=== PATIENT | female | born 1975 | race Caucasian/White ===

== ENCOUNTER 2017-06-18 23:01 | Inpatient (IN) | payer MEDICAID ==
--- NOTE | 2017-06-18 23:06 | EDM.PDOC ---
ED HPI GENERAL MEDICAL PROBLEM - General Chief Complaint: General Stated Complaint: FEVER/SICK Time Seen by Provider: 06/18/17 23:05 Source of Information: Reports: Patient - History of Present Illness INITIAL COMMENTS - FREE TEXT/NARRATIVE: HISTORY AND PHYSICAL: History of present illness: [Patient presents with nausea vomiting right upper quadrant pain since Thursday unable to keep food or water down, on arrival it is noted she is hypotensive 90s over 60s, she has been stable in this blood pressure range since arrival No fever vomiting chills sweats here in the emergency room no chest pain shortness breath headache dizziness palpitation no urine symptoms ] Review of systems: As per history of present illness and below otherwise all systems reviewed and negative. Past medical history: As per history of present illness and as reviewed below otherwise noncontributory. Surgical history: As per history of present illness and as reviewed below otherwise noncontributory. Social history: No reported history of drug or alcohol abuse. Family history: As per history of present illness and as reviewed below otherwise noncontributory. Physical exam: HEENT: Atraumatic, normocephalic, pupils reactive, negative for conjunctival pallor or scleral icterus, mucous membranes moist, throat clear, neck supple, nontender, trachea midline. Lungs: Clear to auscultation, breath sounds equal bilaterally, chest nontender. Heart: S1S2, regular, negative for clicks, rubs, or JVD. Abdomen: Soft, nondistended, tender in the right upper quadrant otherwise no guarding or rebound tenderness. Negative for masses or hepatosplenomegaly. Negative for costovertebral tenderness. Pelvis: Stable nontender. Genitourinary: Deferred. Rectal: Deferred. Extremities: Atraumatic, negative for cords or calf pain. Neurovascular unremarkable. Neuro: Awake, alert, oriented. Cranial nerves II through XII unremarkable. Cerebellum unremarkable. Motor and sensory unremarkable throughout. Exam nonfocal. Diagnostics: [Influenza/strep] CBC CMP UA amylase lipase hCG Therapeutics: [1 L normal saline bolus followed by 1 50 mL per hour Zofran 8 mg IV Toradol 30 mg IV Cipro 400 mg IV twice a day ] Impression: Dehydration Nausea vomiting by history Right upper quadrant pain/acute cholecystitis Cholelithiasis Insufficiency Definitive disposition and diagnosis as appropriate pending reevaluation and review of above. Right Upper Abdomen Pain Score (Numeric/FACES): 8 - Related Data Allergies Allergy/AdvReac Type Severity Reaction Status Date / Time No Known Allergies Allergy Verified 06/18/17 23:10 Home Meds: Home Meds Estradiol 1 mg PO DAILY 06/18/17 [History] Furosemide 20 mg PO DAILY 06/18/17 [History] LORazepam 0.5 mg PO Q6HR MDD anxiety 06/18/17 [History] Lisinopril/Hydrochlorothiazide [Lisinopril-Hctz 20-25 mg Tab] 1 each PO DAILY [History] buPROPion [Wellbutrin SR] 150 mg PO BID 06/18/17 [History] ED ROS GENERAL - Review of Systems Review Of Systems: ROS reveals no pertinent complaints other than HPI. ED EXAM, GENERAL - Physical Exam Exam: See Below Course - Vital Signs Last Recorded V/S: Last Vital Signs Temp 98.2 F 06/19/17 01:05 Pulse 95 06/19/17 00:52 Resp 18 06/19/17 00:52 BP 99/52 L 06/19/17 00:52 Pulse Ox 97 06/19/17 00:52 - Orders/Labs/Meds Orders: Active Orders 24 hr Category Date Time Status Abdomen Ltd [US] Stat Exams 06/18/17 23:22 Taken CULTURE BLOOD [BC] Stat Lab 06/18/17 23:43 Received CULTURE BLOOD [BC] Stat Lab 06/18/17 23:46 Received CULTURE STREP A CONFIRMATION [RM] Stat Lab 06/18/17 23:30 Results STREP SCRN A RAPID W CULT CONF [RM] Stat Lab 06/18/17 23:30 Results UA W/MICROSCOPIC [URIN] Stat Lab 06/18/17 23:19 Uncollected Ciprofloxacin in D5W [Cipro in D5W 400 MG/200 ML] 400 Med 06/19/17 01:45 Ordered mg Premix Bag 1 bag IV Q12H Sodium Chloride 0.9% [Normal Saline] 1,000 ml Med 06/19/17 01:15 Active IV STAT Blood Culture x2 Reflex Set [OM.PC] Stat Oth 06/18/17 23:23 Ordered Medication Orders Sodium Chloride (Normal Saline) 1,000 mls @ 150 mls/hr IV STAT CHEVY Last Admin: 06/19/17 01:15 Dose: 150 mls/hr Labs: Laboratory Tests 06/18/17 06/18/17 06/18/17 Range/Units 23:30 23:30 23:30 WBC 9.18 (4.0-11.0) K/uL RBC 4.88 (4.30-5.90) M/uL Hgb 15.6 (12.0-16.0) g/dL Hct 45.5 (36.0-46.0) % MCV 93.2 (80.0-98.0) fL MCH 32.0 (27.0-32.0) pg MCHC 34.3 (31.0-37.0) g/dL RDW Std Deviation 48.6 (28.0-62.0) fl RDW Coeff of Ana 14 (11.0-15.0) % Plt Count 202 (150-400) K/uL MPV 12.50 H (7.40-12.00) fL Neut % (Auto) 65.8 (48.0-80.0) % Lymph % (Auto) 21.0 (16.0-40.0) % Forrest % (Auto) 11.0 (0.0-15.0) % Eos % (Auto) 2.0 (0.0-7.0) % Baso % (Auto) 0.2 (0.0-1.5) % Neut # (Auto) 6.0 H (1.4-5.7) K/uL Lymph # (Auto) 1.9 (0.6-2.4) K/uL Forrest # (Auto) 1.0 H (0.0-0.8) K/uL Eos # (Auto) 0.2 (0.0-0.7) K/uL Baso # (Auto) 0.0 (0.0-0.1) K/uL Nucleated RBC % 0.0 /100WBC Nucleated RBCs # 0 K/uL Lactate 1.1 (0.20-2.00) mmol/L Sodium 135 L (136-146) mmol/L Potassium 3.3 L (3.5-5.1) mmol/L Chloride 99 (98-110) mmol/L Carbon Dioxide 20 L (21-31) mmol/L BUN 35 H (6.0-23.0) mg/dL Creatinine 3.9 H (0.6-1.5) mg/dL Est Cr Clr Drug Dosing 21.91 mL/min Estimated GFR (MDRD) 12.7 ml/min Glucose 101 (60-110) mg/dL Calcium 9.2 (8.8-10.8) mg/dL Total Bilirubin 0.4 (0.1-1.5) mg/dL AST 36 (5-40) IU/L ALT 92 H (8-54) IU/L Alkaline Phosphatase 82 (40-150) Total Protein 7.6 (6.0-8.0) g/dL Albumin 4.4 (3.5-5.0) g/dL Globulin 3.2 (2.0-3.5) g/dL Albumin/Globulin Ratio 1.4 (1.3-2.8) Amylase 66 (10-90) U/L Lipase 24 (7-80) U/L Meds: Medications Generic Name Dose Route Start Last Admin Trade Name Freq PRN Reason Stop Dose Admin Sodium Chloride 1,000 mls @ 150 mls/hr 06/19/17 01:15 06/19/17 01:15 Normal Saline IV 150 mls/hr STAT CHEVY Administration Discontinued Medications Generic Name Dose Route Start Last Admin Trade Name Freq PRN Reason Stop Dose Admin Sodium Chloride 1,000 mls @ 999 mls/hr 06/18/17 23:19 06/18/17 23:32 Normal Saline IV 06/19/17 00:19 999 mls/hr STAT ONE Administration Ketorolac Tromethamine 30 mg 06/18/17 23:19 06/18/17 23:33 Toradol IVPUSH 06/18/17 23:20 30 mg ONETIME ONE Administration Ondansetron HCl 8 mg 06/18/17 23:19 06/18/17 23:32 Zofran IVPUSH 06/18/17 23:20 8 mg ONETIME ONE Administration Departure - Departure Time of Disposition: 01:36 Disposition: Admitted As Inpatient 66 Condition: Poor Clinical Impression: Hypotension - Discharge Information Referrals: PCP,None [Primary Care Provider] - Forms: ED Department Discharge - My Orders Last 24 Hours: My Active Orders 06/18/17 23:19 UA W/MICROSCOPIC [URIN] Stat 06/18/17 23:22 Abdomen Ltd [US] Stat 06/18/17 23:23 Blood Culture x2 Reflex Set [OM.PC] Stat 06/18/17 23:30 CULTURE STREP A CONFIRMATION [RM] Stat STREP SCRN A RAPID W CULT CONF [RM] Stat 06/18/17 23:43 CULTURE BLOOD [BC] Stat 06/18/17 23:46 CULTURE BLOOD [BC] Stat 06/19/17 01:15 Sodium Chloride 0.9% [Normal Saline] 1,000 ml IV STAT 06/19/17 01:45 Ciprofloxacin in D5W [Cipro in D5W 400 MG/200 ML] 400 mg Premix Bag 1 bag IV Q12H - Assessment/Plan Last 24 Hours: My Active Orders 06/18/17 23:19 UA W/MICROSCOPIC [URIN] Stat 06/18/17 23:22 Abdomen Ltd [US] Stat 06/18/17 23:23 Blood Culture x2 Reflex Set [OM.PC] Stat 06/18/17 23:30 CULTURE STREP A CONFIRMATION [RM] Stat STREP SCRN A RAPID W CULT CONF [RM] Stat 06/18/17 23:43 CULTURE BLOOD [BC] Stat 06/18/17 23:46 CULTURE BLOOD [BC] Stat 06/19/17 01:15 Sodium Chloride 0.9% [Normal Saline] 1,000 ml IV STAT 06/19/17 01:45 Ciprofloxacin in D5W [Cipro in D5W 400 MG/200 ML] 400 mg Premix Bag 1 bag IV Q12H
[2017-06-18] MEDS ORDERED: Ketorolac 30 MG/ML SDV IVPUSH ONE (23:19)
[2017-06-18] MEDS ORDERED: Ondansetron 4 MG/2 ML SDV IVPUSH ONE (23:19)
[2017-06-18] MEDS ORDERED: Sodium Chloride 0.9% 1,000 ML IV ONE (23:19)
[2017-06-19] MEDS: Sodium Chloride 0.9% 1,000 ML IV SCH ×3 (01:15→22:53)
[2017-06-19] MEDS: Ciprofloxacin in D5W 400 MG in Premix Bag 1 BAG IV SCH ×4 (02:16→14:30)
[2017-06-19] MEDS: metroNIDAZOLE/Normal Saline 500 MG in Premix Bag 1 BAG IV SCH ×3 (04:05→20:34)
[2017-06-19] MEDS ORDERED: Ondansetron 4 MG/2 ML SDV IVPUSH PRN (04:09)
[2017-06-19] MEDS: Morphine 2 MG/ML Syringe IVPUSH PRN ×2 (04:25→16:19)
[2017-06-19] MEDS: Lactated Ringers 1,000 ML IV SCH ×2 (09:18→13:09)
--- NOTE | 2017-06-19 09:54 | PCM.CONS ---
H&P History of Present Illness - General Date of Service: 06/19/17 Source of Information: Patient History Limitations: Reports: No Limitations - History of Present Illness Initial Comments - Free Text/Narative: Patient is a 41-year-old female who presents with right upper quadrant pain nausea and vomiting since Thursday. She woke up Thursday morning with pain in her mid back. She thought that she had slept wrong. She took a warm bath and over- the-counter pain medication with no relief. By that evening she started having nausea and vomiting. She was sick at home for the last 4 days and has been unable to eat or drink anything. She also developed diarrhea. She presented the emergency room last night. Her white blood cell count was within normal limits. Her blood pressure was 99/61 with a normal heart rate. Her ALTs was slightly elevated. A right upper quadrant ultrasound was performed that showed a gallstone in the gallbladder neck possibly impacted. There was mild thickening of the gallbladder and trace pericolic fluid. This suggested possible acute cholecystitis. She was admitted to the hospital, given IV ciprofloxacin and Flagyl, started on IV fluids and kept nothing by mouth. She received IV morphine which greatly improved her pain. She is feeling much better this morning. Her repeat labs show slightly elevated AST and ALT. Her bilirubin and alkaline phosphatase are within normal limits. Her blood pressure is slightly lower this morning. She is getting a bolus of fluid right now. Right Upper Abdomen Pain Score (Numeric/FACES): 8 - Related Data Allergies/Adverse Reactions: Allergies Allergy/AdvReac Type Severity Reaction Status Date / Time No Known Allergies Allergy Verified 06/19/17 03:42 Home Medications: Home Meds Estradiol 1 mg PO DAILY 06/18/17 [History] Furosemide 20 mg PO DAILY 06/18/17 [History] LORazepam 0.5 mg PO Q6HR PRN MDD anxiety 06/18/17 [History] Lisinopril/Hydrochlorothiazide [Lisinopril-Hctz 20-25 mg Tab] 1 each PO DAILY [History] buPROPion [Wellbutrin SR] 150 mg PO DAILY 06/18/17 [History] Acetaminophen [Tylenol] 650 mg PO Q4HR PRN 06/19/17 [History] Past Medical History HEENT History: Reports: None Cardiovascular History: Reports: Hypertension Respiratory History: Reports: None Gastrointestinal History: Reports: None Genitourinary History: Reports: None 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/DRIVER History: Reports: Musculoskeletal History: Reports: None Neurological History: Reports: None Psychiatric History: Reports: Anxiety Endocrine/Metabolic History: Reports: None Hematologic History: Reports: None Immunologic History: Reports: None Oncologic (Cancer) History: Reports: Malignant Melanoma, Ovarian Other Oncologic History: melanoma Dermatologic History: Reports: None - Infectious Disease History Infectious Disease History: Reports: Other (See Below) Other Infectious Disease History: Had Sepsis after her cancer surgery - Past Surgical History Head Surgeries/Procedures: Reports: None HEENT Surgical History: Reports: None Cardiovascular Surgical History: Reports: None GI Surgical History: Reports: None Female Surgical History: Reports: Hysterectomy Oncologic Surgical History: Reports: Other (See Below) (Excision melanoma lesion on the left arm) Social & Family History - Family History Family Medical History: Noncontributory - Tobacco Use Smoking Status *Q: Current Every Day Smoker Years of Tobacco use: 18 Packs/Tins Daily: 0.5 Second Hand Smoke Exposure: No - Caffeine Use Caffeine Use: Reports: Coffee, Soda - Recreational Drug Use Recreational Drug Use: No H&P Review of Systems - Review of Systems: Review Of Systems: ROS reveals no pertinent complaints other than HPI. Exam - Exam Exam: See Below - Vital Signs Vital Signs: Last Vital Signs Temp 36.1 C 06/19/17 07:52 Pulse 72 06/19/17 07:52 Resp 16 06/19/17 07:52 BP 88/51 L 06/19/17 07:52 Pulse Ox 97 06/19/17 07:52 Weight: 106.4 kg - Exam General: Alert, Oriented HEENT: Conjunctiva Clear, EOMI, Hearing Intact, Mucosa Moist & Fox, Nares Patent, Pupils Equal, Pupils Reactive Lungs: Clear to Auscultation, Normal Respiratory Effort Cardiovascular: Regular Rate, Regular Rhythm GI/Abdominal Exam: Soft, No Distention, No Mass, Other (Positive murphys sign ) Extremities: Normal Inspection, Normal Range of Motion - Patient Data Lab Results Last 24 hrs: Laboratory Results - last 24 hr 06/19/17 06/19/17 06/19/17 Range/Units 04:15 05:32 05:32 WBC 5.86 (4.0-11.0) K/uL RBC 4.34 (4.30-5.90) M/uL Hgb 13.5 (12.0-16.0) g/dL Hct 41.0 (36.0-46.0) % MCV 94.5 (80.0-98.0) fL MCH 31.1 (27.0-32.0) pg MCHC 32.9 (31.0-37.0) g/dL RDW Std Deviation 49.9 (28.0-62.0) fl RDW Coeff of Ana 14 (11.0-15.0) % Plt Count 158 (150-400) K/uL MPV 12.00 (7.40-12.00) fL Neut % (Auto) 60.8 (48.0-80.0) % Lymph % (Auto) 22.4 (16.0-40.0) % [place]pson % (Auto) 14.3 (0.0-15.0) % Eos % (Auto) 2.2 (0.0-7.0) % Baso % (Auto) 0.3 (0.0-1.5) % Neut # (Auto) 3.6 (1.4-5.7) K/uL Lymph # (Auto) 1.3 (0.6-2.4) K/uL Sampson # (Auto) 0.8 (0.0-0.8) K/uL Eos # (Auto) 0.1 (0.0-0.7) K/uL Baso # (Auto) 0.0 (0.0-0.1) K/uL Nucleated RBC % 0.0 /100WBC Nucleated RBCs # 0 K/uL Sodium 138 (136-146) mmol/L Potassium 4.1 (3.5-5.1) mmol/L Chloride 104 (98-110) mmol/L Carbon Dioxide 23 (21-31) mmol/L BUN 31 H (6.0-23.0) mg/dL Creatinine 2.8 H (0.6-1.5) mg/dL Est Cr Clr Drug Dosing 30.51 mL/min Estimated GFR (MDRD) 18.6 ml/min Glucose 86 (60-110) mg/dL Calcium 8.3 L (8.8-10.8) mg/dL Total Bilirubin 0.4 (0.1-1.5) mg/dL AST 41 H (5-40) IU/L ALT 82 H (8-54) IU/L Alkaline Phosphatase 69 (40-150) Total Protein 6.3 (6.0-8.0) g/dL Albumin 3.7 (3.5-5.0) g/dL Globulin 2.6 (2.0-3.5) g/dL Albumin/Globulin Ratio 1.4 (1.3-2.8) Urine Color YELLOW Urine Appearance HAZY Urine pH 5.5 (5.0-8.0) Ur Specific [place] 1.025 (1.001-1.035) Urine Protein NEGATIVE (NEGATIVE) mg/dL Urine Glucose (UA) NEGATIVE (NEGATIVE) mg/dL Urine Ketones NEGATIVE (NEGATIVE) mg/dL Urine Occult Blood NEGATIVE (NEGATIVE) Urine Nitrite NEGATIVE (NEGATIVE) Urine Bilirubin NEGATIVE (NEGATIVE) Urine Urobilinogen 0.2 (<2.0) EU/dL Ur Leukocyte Esterase NEGATIVE (NEGATIVE) Urine RBC 1-2 (0-2/HPF) Urine WBC 1-3 (0-5/HPF) Ur Epithelial Cells MODERATE (NONE-FEW) Urine Bacteria FEW (NEGATIVE) Urine Trichomonas PRESENT (NEGATIVE) Result Diagrams: 06/19/17 05:32 06/19/17 05:32 Consult PN Assessment/Plan (1) Biliary colic SNOMED Code(s): 71289644 Code(s): K80.50 - CALCULUS OF BILE DUCT W/O CHOLANGITIS OR CHOLECYST W/O OBST Current Visit: Yes (2) Hypotension SNOMED Code(s): 63379117 Code(s): I95.9 - HYPOTENSION, UNSPECIFIED Current Visit: Yes (3) Acute renal insufficiency SNOMED Code(s): 131477491 Code(s): N28.9 - DISORDER OF KIDNEY AND URETER, UNSPECIFIED Current Visit: Yes Problem List Initiated/Reviewed/Updated: Yes My Orders Last 24 Hours: My Active Orders 06/19/17 09:00 Lactated Ringers [Ringers, Lactated] 1,000 ml IV .BOLUS Plan: This patient certainly has signs and symptoms of possible acute cholecystitis. Given the slight bump in her LFTs, she is getting an MRCP to better characterize what is going on in the gallbladder and to rule out choledocholithiasis (although my suspicion for that is very low). She doesn't appear to be septic but rather dry. She came in with an elevated BUN and creatinine and has ongoing low blood pressure. Given her multiple days of nausea and vomiting I'm not surprised that this. I would continue to bolus her with IV fluids and watch her urine output closely. She appears to be responding well to the fluids that she received last night. I will repeat her labs this evening. Given that she is 5 days out from the onset of pain, the amount of inflammation around her gallbladder may be substantial. She has a history of TAHBSO with possible resection of other structures from ovarian cancer. She could have a large amount of intra-abdominal adhesions. Based on how well she responds to fluids, NPO, and IV pain medications I may remove her gallbladder during this stay. She understands that her risk of converting to an open procedure is high and she carries a higher risk of marty-operative complications. I will follow up on her MRCP results and continue to follow the patient closely. Should she remain or become more hypotensive or her renal function worsen she will need to be transfered.
[2017-06-19] MEDS ORDERED: Lactated Ringers 1,000 ML IV SCH (12:15)
--- NOTE | 2017-06-19 13:28 | PCM.HP ---
H&P History of Present Illness - General Date of Service: 06/19/17 Source of Information: Patient History Limitations: Reports: No Limitations - History of Present Illness Initial Comments - Free Text/Narative: 41-year-old previously healthy female presented to the emergency department with a chief complaint of nausea, vomiting, right upper quadrant tenderness that has been ongoing since this past Thursday. She described her pain is located in the right upper quadrant, nonradiating, constant. She denies any fevers or chills, chest pain, numbness or tingling. She told me that the morphine that she had been getting by previous provider has been taking care of her pain. ER course: Hypotensive with blood pressure on presentation 92/47 Afebrile CBC unremarkable Lactate 1.1 Sodium 135 Potassium 3.3 BUN 35 Creatinine 3.9 AST 36, ALT 92, alkaline phosphatase 82 Ciprofloxacin IV Toradol 30 mg IV 1 Zofran 8 mg IV 1 IV normal saline bolus 1 L 2 Urinalysis positive for Trichomonas Right Upper Abdomen Pain Score (Numeric/FACES): 3 - Related Data Allergies/Adverse Reactions: Allergies Allergy/AdvReac Type Severity Reaction Status Date / Time No Known Allergies Allergy Verified 06/19/17 03:42 Home Medications: Home Meds Estradiol 1 mg PO DAILY 06/18/17 [History] Furosemide 20 mg PO DAILY 06/18/17 [History] LORazepam 0.5 mg PO Q6HR PRN MDD anxiety 06/18/17 [History] Lisinopril/Hydrochlorothiazide [Lisinopril-Hctz 20-25 mg Tab] 1 each PO DAILY [History] buPROPion [Wellbutrin SR] 150 mg PO DAILY 06/18/17 [History] Acetaminophen [Tylenol] 650 mg PO Q4HR PRN 06/19/17 [History] Past Medical History HEENT History: Reports: None Cardiovascular History: Reports: Hypertension Respiratory History: Reports: None Gastrointestinal History: Reports: None Genitourinary History: Reports: None 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 History: Reports: Musculoskeletal History: Reports: None Neurological History: Reports: None Psychiatric History: Reports: Anxiety Endocrine/Metabolic History: Reports: None Hematologic History: Reports: None Immunologic History: Reports: None Oncologic (Cancer) History: Reports: Malignant Melanoma, Ovarian Other Oncologic History: melanoma Dermatologic History: Reports: None - Infectious Disease History Infectious Disease History: Reports: Other (See Below) Other Infectious Disease History: Had Sepsis after her cancer surgery - Past Surgical History Head Surgeries/Procedures: Reports: None HEENT Surgical History: Reports: None Cardiovascular Surgical History: Reports: None GI Surgical History: Reports: None Female Surgical History: Reports: Hysterectomy Oncologic Surgical History: Reports: Other (See Below) (Excision melanoma lesion on the left arm) Social & Family History - Family History Family Medical History: Noncontributory - Tobacco Use Smoking Status *Q: Current Every Day Smoker Years of Tobacco use: 18 Packs/Tins Daily: 0.5 Second Hand Smoke Exposure: No - Caffeine Use Caffeine Use: Reports: Coffee, Soda - Recreational Drug Use Recreational Drug Use: No H&P Review of Systems - Review of Systems: Review Of Systems: See Below General: Reports: Weakness HEENT: Reports: No Symptoms Pulmonary: Reports: No Symptoms Cardiovascular: Reports: No Symptoms Gastrointestinal: Reports: Abdominal Pain, Decreased Appetite, Nausea, Vomiting. Denies: Black Stool, Bloody Stool, Constipation, Diarrhea, Distension Genitourinary: Reports: No Symptoms Musculoskeletal: Reports: No Symptoms Skin: Reports: No Symptoms Psychiatric: Reports: No Symptoms Neurological: Reports: No Symptoms Hematologic/Lymphatic: Reports: No Symptoms Immunologic: Reports: No Symptoms Exam - Exam Exam: See Below - Vital Signs Vital Signs: Last Vital Signs Temp 36.1 C 06/19/17 11:39 Pulse 59 L 06/19/17 12:04 Resp 18 06/19/17 11:39 BP 92/47 L 06/19/17 12:04 Pulse Ox 96 06/19/17 11:39 Weight: 106.4 kg - Exam General: Alert, Oriented, Cooperative HEENT: Conjunctiva Clear, EACs Clear, EOMI Neck: Supple, Trachea Midline Lungs: Clear to Auscultation, Normal Respiratory Effort Cardiovascular: Regular Rate, Regular Rhythm GI/Abdominal Exam: Normal Bowel Sounds (Right upper quadrant tenderness, no rebound), Tender. No: Hepatomegaly Extremities: Normal Inspection, Normal Range of Motion, Non-Tender, No Pedal Edema, Normal Capillary Refill Peripheral Pulses: 2+: Posterior Tibial (L), Posterior Tibial (R) Neurological: Cranial Nerves Intact Neuro Extensive - Mental Status: Alert, Oriented x3, Normal Mood/Affect Neuro Extensive - Motor, Sensory, Reflexes: CN II-XII Intact Psychiatric: Alert, Normal Affect, Normal Mood - Patient Data Lab Results Last 24 hrs: Laboratory Results - last 24 hr 06/19/17 06/19/17 06/19/17 Range/Units 04:15 05:32 05:32 WBC 5.86 (4.0-11.0) K/uL RBC 4.34 (4.30-5.90) M/uL Hgb 13.5 (12.0-16.0) g/dL Hct 41.0 (36.0-46.0) % MCV 94.5 (80.0-98.0) fL MCH 31.1 (27.0-32.0) pg MCHC 32.9 (31.0-37.0) g/dL RDW Std Deviation 49.9 (28.0-62.0) fl RDW Coeff of Ana 14 (11.0-15.0) % Plt Count 158 (150-400) K/uL MPV 12.00 (7.40-12.00) fL Neut % (Auto) 60.8 (48.0-80.0) % Lymph % (Auto) 22.4 (16.0-40.0) % Ashley % (Auto) 14.3 (0.0-15.0) % Eos % (Auto) 2.2 (0.0-7.0) % Baso % (Auto) 0.3 (0.0-1.5) % Neut # (Auto) 3.6 (1.4-5.7) K/uL Lymph # (Auto) 1.3 (0.6-2.4) K/uL Ashley # (Auto) 0.8 (0.0-0.8) K/uL Eos # (Auto) 0.1 (0.0-0.7) K/uL Baso # (Auto) 0.0 (0.0-0.1) K/uL Nucleated RBC % 0.0 /100WBC Nucleated RBCs # 0 K/uL Sodium 138 (136-146) mmol/L Potassium 4.1 (3.5-5.1) mmol/L Chloride 104 (98-110) mmol/L Carbon Dioxide 23 (21-31) mmol/L BUN 31 H (6.0-23.0) mg/dL Creatinine 2.8 H (0.6-1.5) mg/dL Est Cr Clr Drug Dosing 30.51 mL/min Estimated GFR (MDRD) 18.6 ml/min Glucose 86 (60-110) mg/dL Calcium 8.3 L (8.8-10.8) mg/dL Total Bilirubin 0.4 (0.1-1.5) mg/dL AST 41 H (5-40) IU/L ALT 82 H (8-54) IU/L Alkaline Phosphatase 69 (40-150) Total Protein 6.3 (6.0-8.0) g/dL Albumin 3.7 (3.5-5.0) g/dL Globulin 2.6 (2.0-3.5) g/dL Albumin/Globulin Ratio 1.4 (1.3-2.8) Urine Color YELLOW Urine Appearance HAZY Urine pH 5.5 (5.0-8.0) Ur Specific [place] 1.025 (1.001-1.035) Urine Protein NEGATIVE (NEGATIVE) mg/dL Urine Glucose (UA) NEGATIVE (NEGATIVE) mg/dL Urine Ketones NEGATIVE (NEGATIVE) mg/dL Urine Occult Blood NEGATIVE (NEGATIVE) Urine Nitrite NEGATIVE (NEGATIVE) Urine Bilirubin NEGATIVE (NEGATIVE) Urine Urobilinogen 0.2 (<2.0) EU/dL Ur Leukocyte Esterase NEGATIVE (NEGATIVE) Urine RBC 1-2 (0-2/HPF) Urine WBC 1-3 (0-5/HPF) Ur Epithelial Cells MODERATE (NONE-FEW) Urine Bacteria FEW (NEGATIVE) Urine Trichomonas PRESENT (NEGATIVE) Result Diagrams: 06/19/17 05:32 06/19/17 05:32 *Q Meaningful Use (ADM) - VTE *Q VTE Criteria *Q: - Stroke *Q Stroke Criteria *Q: - AMI *Q AMI Criteria *Q: Problem List Initiated/Reviewed/Updated: Yes Orders Last 24hrs: Active Orders 24 hr Category Date Time Status Notify Provider Consults [RC] ASDIRECTED Care 06/19/17 08:40 Active Consult to Physician [CONS] Routine Cons 06/19/17 08:40 Active NPO [Nothing Per Oral Diet] [DIET] Diet 06/19/17 Breakfast Active Abdomen wo Cont [MR] Urgent Exams 06/19/17 09:04 Taken CBC W/O DIFF,HEMOGRAM [HEME] Routine Lab 06/19/17 16:00 Ordered COMPREHENSIVE METABOLIC PN,CMP [CHEM] Routine Lab 06/19/17 16:00 Ordered Lactated Ringers [Ringers, Lactated] 1,000 ml Med 06/19/17 09:00 Active IV .BOLUS Lactated Ringers [Ringers, Lactated] 1,000 ml Med 06/19/17 12:15 Active IV STAT Morphine Med 06/19/17 03:25 Active 2 mg IVPUSH Q3H PRN Ondansetron [Zofran] Med 06/19/17 04:09 Active 4 mg IVPUSH Q3H PRN Sodium Chloride 0.9% [Normal Saline] 1,000 ml Med 06/19/17 03:30 Active IV ASDIRECTED metroNIDAZOLE/Normal Saline [Flagyl 500 MG in NS 100 ML Med 06/19/17 04:00 Active ] 500 mg Premix Bag 1 bag IV Q8H Medication Orders Sodium Chloride (Normal Saline) 1,000 mls @ 150 mls/hr IV STAT [facility] Last Admin: 06/19/17 11:55 Dose: 150 mls/hr Infusion: 06/19/17 07:56 Dose: 150 mls/hr Admin: 06/19/17 01:15 Dose: 150 mls/hr Ciprofloxacin/Dextrose 400 mg/ (Premix) 200 mls @ 200 mls/hr IV Q12H [facility] Last Admin: 06/19/17 02:16 Dose: 200 mls/hr Metronidazole 500 mg/ Premix 100 mls @ 100 mls/hr IV Q8H [facility] Last Admin: 06/19/17 11:57 Dose: 100 mls/hr Infusion: 06/19/17 05:05 Dose: 100 mls/hr Admin: 06/19/17 04:05 Dose: 100 mls/hr Sodium Chloride (Normal Saline) 1,000 mls @ 150 mls/hr IV ASDIRECTED [facility] Lactated Ringer's (Ringers, Lactated) 1,000 mls @ 1,000 mls/hr IV .BOLUS [facility] Last Admin: 06/19/17 13:09 Dose: 1,000 mls/hr Infusion: 06/19/17 10:18 Dose: 1,000 mls/hr Admin: 06/19/17 09:18 Dose: 1,000 mls/hr Lactated Ringer's (Ringers, Lactated) 1,000 mls @ 999 mls/hr IV STAT [facility] Morphine Sulfate (Morphine) 2 mg IVPUSH Q3H PRN PRN Reason: Pain Last Admin: 06/19/17 04:25 Dose: 2 mg Ondansetron HCl (Zofran) 4 mg IVPUSH Q3H PRN PRN Reason: Nausea/Vomiting Assessment/Plan Comment:: Assessment: #1. Acute cholecystitis #2. Mild hyponatremia #3. Hypokalemia #4. Acute kidney injury #5. Transaminitis #6. Hypotension #7. Trichomonas Plan: 1. Admit as inpatient. Full code. 2. Vital signs per floor routine 3. IV normal saline 150 mL an hour 4. Consult surgery. I discussed the case with surgery, who recommended a MRCP which appears to be unremarkable and indicates cholelithiasis rather than acute cholecystitis. The plan is to see if we can conservatively treat this patient today with antibiotics and scheduled for cholecystectomy over the weekend. 5. IV ciprofloxacin, Flagyl which should cover for both cholecystitis and trichomonas found on UA. 6. Zofran for nausea 7. Bolus with fluids as needed for hypotension 8. Morphine 2 mg IV every 3 hours when necessary for pain
--- NOTE | 2017-06-19 17:41 | US ---
EXAM DATE: 06/19/17 PATIENT'S AGE: 41 Patient: ANTOINETTE ARTIS Facility: [place], [place] Site . Site : 1975 Study: US Abdomen [id number]/2/2018 12:35:17 AM Ordering Physician: Dasha Farfan Final Report: INDICATION: RUQ PAIN. LIMITED ABDOMEN ULTRASOUND Technique: Multiple sonographic images were performed over the right upper quadrant. Findings: The gallbladder shows a 1.3 centimeter shadowing gallstone in the gallbladder neck which does not appear to move and may be impacted. The gallbladder wall is slightly thickened at 3.6 millimeters and there is a suggestion of a trace amount of pericholecystic fluid. There was a positive sonographic Dee`s sign according to the technologist. No intrahepatic biliary dilatation is seen and the common bile duct is normal in caliber, measuring 2 mm in diameter. The visualized portions of the liver, pancreas, and right kidney are unremarkable except for increased echogenicity of the liver consistent with fatty infiltration. IMPRESSION: 1. Gallstone in the gallbladder neck, possibly impacted. Mildly thickened gallbladder wall with suggestion of trace pericholecystic fluid. Positive sonographic Dee`s sign. These findings strongly suggest acute cholecystitis. 2. Fatty infiltration of liver. BILLIE GUTIERREZ MD [employer] [employer] Dictated by Brian Gutierrez MD @ 06/19/2017 12:41:44 AM Dictated by: Brian Gutierrez MD @ 06/19/2017 00:42:08 (Electronic Signature) Report Signed by Proxy. KEVEN
--- NOTE | 2017-06-19 17:53 | MR ---
EXAM DATE: 06/19/17 PATIENT'S AGE: 41 Patient: ANTOINETTE ARTIS Facility: [place], [place] Site . Site : 1975 Study: MRI Abdomen [id number]/2/2018 10:48:12 AM Ordering Physician: Carlos Diaz Final Report: INDICATION: CHOLECYSTITIS. TECHNIQUE: Heavily T2 weighted 2D and 3D MRCP images. Axial T1 in- and out of phase and T2 weighted images also performed. No gadolinium administered. COMPARISON: Abdominal ultrasound dated 18 June 2017. FINDINGS: Moderate diffuse fatty infiltration of the liver. No focal abnormalities identified in the visualized portions of the liver, spleen, pancreas, adrenal glands, and kidneys. No hydronephrosis. No adenopathy. Gallstones in the gallbladder. No intra or extrahepatic bile duct dilation with the common bile duct measuring 3 mm. No filling defects in the biliary system. Normal size of the main pancreatic duct. IMPRESSION: 1. No bile duct dilation. No choledocholithiasis. Normal size of the main pancreatic duct. 2. Moderate diffuse fatty infiltration of the liver. Dictated by Derrick Grimaldo MD @ 06/19/2017 11:49:03 AM Dictated by: Derrick Grimaldo MD @ 06/19/2017 11:49:19 (Electronic Signature) Report Signed by Proxy. [facility]
[2017-06-20] MEDS: Ciprofloxacin in D5W 400 MG in Premix Bag 1 BAG IV SCH ×2 (02:05)
[2017-06-20] MEDS: metroNIDAZOLE/Normal Saline 500 MG in Premix Bag 1 BAG IV SCH ×2 (03:50→11:44)
[2017-06-20] MEDS: Sodium Chloride 0.9% 1,000 ML IV SCH (08:23)
--- NOTE | 2017-06-20 09:40 | PCM.PN ---
- General Info Date of Service: 06/20/17 Functional Status: Reports: Pain Controlled, Ambulating, Urinating - Review of Systems General: Reports: No Symptoms Pulmonary: Reports: No Symptoms Cardiovascular: Reports: No Symptoms Gastrointestinal: Reports: No Symptoms - Patient Data Vitals - Most Recent: Last Vital Signs Temp 36.2 C 06/20/17 08:00 Pulse 66 06/20/17 08:00 Resp 16 06/20/17 08:00 BP 109/59 L 06/20/17 08:00 Pulse Ox 97 06/20/17 08:00 Weight - Most Recent: 106.4 kg I&O - Last 24 Hours: Intake & Output 06/19/17 06/20/17 06/20/17 22:59 06:59 14:59 Intake Total 1040 Output Total 2750 Balance -1710 Lab Results Last 24 Hours: Laboratory Results - last 24 hr 06/19/17 06/19/17 06/20/17 Range/Units 16:01 16:01 05:50 WBC 5.77 4.49 (4.0-11.0) K/uL RBC 4.20 L 4.04 L (4.30-5.90) M/uL Hgb 13.3 12.7 (12.0-16.0) g/dL Hct 39.6 38.4 (36.0-46.0) % MCV 94.3 95.0 (80.0-98.0) fL MCH 31.7 31.4 (27.0-32.0) pg MCHC 33.6 33.1 (31.0-37.0) g/dL RDW Std Deviation 48.9 48.4 (28.0-62.0) fl RDW Coeff of Ana 14 14 (11.0-15.0) % Plt Count 154 158 (150-400) K/uL MPV 11.80 12.20 H (7.40-12.00) fL Nucleated RBC % 0.0 0.0 /100WBC Nucleated RBCs # 0 0 K/uL Sodium 139 (136-146) mmol/L Potassium 4.1 (3.5-5.1) mmol/L Chloride 105 (98-110) mmol/L Carbon Dioxide 26 (21-31) mmol/L BUN 21 (6.0-23.0) mg/dL Creatinine 1.8 H (0.6-1.5) mg/dL Est Cr Clr Drug Dosing 47.46 mL/min Estimated GFR (MDRD) 31.0 ml/min Glucose 87 (60-110) mg/dL Calcium 8.3 L (8.8-10.8) mg/dL Total Bilirubin 0.4 (0.1-1.5) mg/dL AST 46 H (5-40) IU/L ALT 80 H (8-54) IU/L Alkaline Phosphatase 66 (40-150) Total Protein 6.0 (6.0-8.0) g/dL Albumin 3.5 (3.5-5.0) g/dL Globulin 2.5 (2.0-3.5) g/dL Albumin/Globulin Ratio 1.4 (1.3-2.8) 06/20/17 Range/Units 05:50 WBC (4.0-11.0) K/uL RBC (4.30-5.90) M/uL Hgb (12.0-16.0) g/dL Hct (36.0-46.0) % MCV (80.0-98.0) fL MCH (27.0-32.0) pg MCHC (31.0-37.0) g/dL RDW Std Deviation (28.0-62.0) fl RDW Coeff of Ana (11.0-15.0) % Plt Count (150-400) K/uL MPV (7.40-12.00) fL Nucleated RBC % /100WBC Nucleated RBCs # K/uL Sodium 140 (136-146) mmol/L Potassium 4.8 (3.5-5.1) mmol/L Chloride 109 (98-110) mmol/L Carbon Dioxide 23 (21-31) mmol/L BUN 14 (6.0-23.0) mg/dL Creatinine 1.2 (0.6-1.5) mg/dL Est Cr Clr Drug Dosing 71.20 mL/min Estimated GFR (MDRD) 49.5 ml/min Glucose 74 (60-110) mg/dL Calcium 8.4 L (8.8-10.8) mg/dL Total Bilirubin (0.1-1.5) mg/dL AST (5-40) IU/L ALT (8-54) IU/L Alkaline Phosphatase (40-150) Total Protein (6.0-8.0) g/dL Albumin (3.5-5.0) g/dL Globulin (2.0-3.5) g/dL Albumin/Globulin Ratio (1.3-2.8) Med Orders - Current: Current Medications Ciprofloxacin/Dextrose 400 mg/ (Premix) 200 mls @ 200 mls/hr IV Q12H [facility] Last Admin: 06/20/17 02:05 Dose: 200 mls/hr Metronidazole 500 mg/ Premix 100 mls @ 100 mls/hr IV Q8H [facility] Last Admin: 06/20/17 03:50 Dose: 100 mls/hr Sodium Chloride (Normal Saline) 1,000 mls @ 150 mls/hr IV ASDIRECTED [facility] Last Admin: 06/20/17 08:23 Dose: 150 mls/hr Morphine Sulfate (Morphine) 2 mg IVPUSH Q3H PRN PRN Reason: Pain Last Admin: 06/19/17 16:19 Dose: 2 mg Ondansetron HCl (Zofran) 4 mg IVPUSH Q3H PRN PRN Reason: Nausea/Vomiting Discontinued Medications Sodium Chloride (Normal Saline) 1,000 mls @ 999 mls/hr IV STAT ONE Stop: 06/19/17 00:19 Last Admin: 06/18/17 23:32 Dose: 999 mls/hr Sodium Chloride (Normal Saline) 1,000 mls @ 150 mls/hr IV STAT [facility] Last Admin: 06/19/17 11:55 Dose: 150 mls/hr Lactated Ringer's (Ringers, Lactated) 1,000 mls @ 1,000 mls/hr IV .BOLUS [facility] Last Admin: 06/19/17 13:09 Dose: 1,000 mls/hr Lactated Ringer's (Ringers, Lactated) 1,000 mls @ 999 mls/hr IV STAT [facility] Ketorolac Tromethamine (Toradol) 30 mg IVPUSH ONETIME ONE Stop: 06/18/17 23:20 Last Admin: 06/18/17 23:33 Dose: 30 mg Ondansetron HCl (Zofran) 8 mg IVPUSH ONETIME ONE Stop: 06/18/17 23:20 Last Admin: 06/18/17 23:32 Dose: 8 mg - Exam General: Alert, Oriented, Cooperative Neck: Supple Lungs: Normal Respiratory Effort Cardiovascular: Regular Rate GI/Abdominal Exam: Soft, No Distention, No Mass, Other (Tender in RUQ) - Problem List & Annotations (1) Biliary colic SNOMED Code(s): 11184287 Code(s): K80.50 - CALCULUS OF BILE DUCT W/O CHOLANGITIS OR CHOLECYST W/O OBST Status: Acute Current Visit: Yes (2) Hypotension SNOMED Code(s): 59305161 Code(s): I95.9 - HYPOTENSION, UNSPECIFIED Status: Acute Current Visit: Yes (3) Acute renal insufficiency SNOMED Code(s): 167705455 Code(s): N28.9 - DISORDER OF KIDNEY AND URETER, UNSPECIFIED Status: Acute Current Visit: Yes - Problem List Review Problem List Initiated/Reviewed/Updated: Yes - Plan Plan:: Patient is feeling much better today. Her BUN and Cr are now within normal limits. Her BP has been stable overnight. UOP is adequate. She is process tank tender in RUQ. Will proceed with lap possible open cholecystectomy today.
--- NOTE | 2017-06-20 10:00 | PCM.PREANE ---
Preanesthetic Assessment - Anesthesia/Transfusion/Family Hx Anesthesia History: Prior Anesthesia Without Reaction Transfusion History: No Prior Transfusion(s) - Review of Systems General: No Symptoms Pulmonary: No Symptoms Cardiovascular: No Symptoms Gastrointestinal: No Symptoms Neurological: No Symptoms Other: Reports: None - Physical Assessment NPO Status Date: 06/14/17 (Pt has been NPO since admission) NPO Status Time: 12:00 O2 Sat by Pulse Oximetry: 97 Respiratory Rate: 16 Vital Signs: Last Vital Signs Temp 97.2 F 06/20/17 08:00 Pulse 66 06/20/17 08:00 Resp 16 06/20/17 08:00 BP 109/59 L 06/20/17 08:00 Pulse Ox 97 06/20/17 08:00 Height: 6 ft Weight: 106.4 kg ASA Class: 2E Mental Status: Alert & Oriented x3 Airway Class: Mallampati = 2 Dentition: Reports: Normal Dentition Thyro-Mental Finger Breadths: 3 Mouth Opening Finger Breadths: 3 ROM/Head Extension: Full Lungs: Clear to Auscultation, Normal Respiratory Effort Cardiovascular: Regular Rate, Regular Rhythm - Lab Values: Laboratory Last Values WBC 4.49 K/uL (4.0-11.0) 06/20/17 05:50 RBC 4.04 M/uL (4.30-5.90) L 06/20/17 05:50 Hgb 12.7 g/dL (12.0-16.0) 06/20/17 05:50 Hct 38.4 % (36.0-46.0) 06/20/17 05:50 MCV 95.0 fL (80.0-98.0) 06/20/17 05:50 MCH 31.4 pg (27.0-32.0) 06/20/17 05:50 MCHC 33.1 g/dL (31.0-37.0) 06/20/17 05:50 RDW Std Deviation 48.4 fl (28.0-62.0) 06/20/17 05:50 RDW Coeff of Ana 14 % (11.0-15.0) 06/20/17 05:50 Plt Count 158 K/uL (150-400) 06/20/17 05:50 MPV 12.20 fL (7.40-12.00) H 06/20/17 05:50 Neut % (Auto) 60.8 % (48.0-80.0) 06/19/17 05:32 Lymph % (Auto) 22.4 % (16.0-40.0) 06/19/17 05:32 [place] % (Auto) 14.3 % (0.0-15.0) 06/19/17 05:32 Eos % (Auto) 2.2 % (0.0-7.0) 06/19/17 05:32 Baso % (Auto) 0.3 % (0.0-1.5) 06/19/17 05:32 Neut # (Auto) 3.6 K/uL (1.4-5.7) 06/19/17 05:32 Lymph # (Auto) 1.3 K/uL (0.6-2.4) 06/19/17 05:32 [place] # (Auto) 0.8 K/uL (0.0-0.8) 06/19/17 05:32 Eos # (Auto) 0.1 K/uL (0.0-0.7) 06/19/17 05:32 Baso # (Auto) 0.0 K/uL (0.0-0.1) 06/19/17 05:32 Nucleated RBC % 0.0 /100WBC 06/20/17 05:50 Nucleated RBCs # 0 K/uL 06/20/17 05:50 Lactate 1.1 mmol/L (0.20-2.00) 06/18/17 23:30 Sodium 140 mmol/L (136-146) 06/20/17 05:50 Potassium 4.8 mmol/L (3.5-5.1) 06/20/17 05:50 Chloride 109 mmol/L (98-110) 06/20/17 05:50 Carbon Dioxide 23 mmol/L (21-31) 06/20/17 05:50 BUN 14 mg/dL (6.0-23.0) 06/20/17 05:50 Creatinine 1.2 mg/dL (0.6-1.5) 06/20/17 05:50 Est Cr Clr Drug Dosing 71.20 mL/min 06/20/17 05:50 Estimated GFR (MDRD) 49.5 ml/min 06/20/17 05:50 Glucose 74 mg/dL (60-110) 06/20/17 05:50 Calcium 8.4 mg/dL (8.8-10.8) L 06/20/17 05:50 Total Bilirubin 0.4 mg/dL (0.1-1.5) 06/19/17 16:01 AST 46 IU/L (5-40) H 06/19/17 16:01 ALT 80 IU/L (8-54) H 06/19/17 16:01 Alkaline Phosphatase 66 (40-150) 06/19/17 16:01 Total Protein 6.0 g/dL (6.0-8.0) 06/19/17 16:01 Albumin 3.5 g/dL (3.5-5.0) 06/19/17 16:01 Globulin 2.5 g/dL (2.0-3.5) 06/19/17 16:01 Albumin/Globulin Ratio 1.4 (1.3-2.8) 06/19/17 16:01 Amylase 66 U/L (10-90) 06/18/17 23:30 Lipase 24 U/L (7-80) 06/18/17 23:30 Urine Color YELLOW 06/19/17 04:15 Urine Appearance HAZY 06/19/17 04:15 Urine pH 5.5 (5.0-8.0) 06/19/17 04:15 Ur Specific [place] 1.025 (1.001-1.035) 06/19/17 04:15 Urine Protein NEGATIVE mg/dL (NEGATIVE) 06/19/17 04:15 Urine Glucose (UA) NEGATIVE mg/dL (NEGATIVE) 06/19/17 04:15 Urine Ketones NEGATIVE mg/dL (NEGATIVE) 06/19/17 04:15 Urine Occult Blood NEGATIVE (NEGATIVE) 06/19/17 04:15 Urine Nitrite NEGATIVE (NEGATIVE) 06/19/17 04:15 Urine Bilirubin NEGATIVE (NEGATIVE) 06/19/17 04:15 Urine Urobilinogen 0.2 EU/dL (<2.0) 06/19/17 04:15 Ur Leukocyte Esterase NEGATIVE (NEGATIVE) 06/19/17 04:15 Urine RBC 1-2 (0-2/HPF) 06/19/17 04:15 Urine WBC 1-3 (0-5/HPF) 06/19/17 04:15 Ur Epithelial Cells MODERATE (NONE-FEW) 06/19/17 04:15 Urine Bacteria FEW (NEGATIVE) 06/19/17 04:15 Urine Trichomonas PRESENT (NEGATIVE) 06/19/17 04:15 - Allergies Allergies/Adverse Reactions: Allergies Allergy/AdvReac Type Severity Reaction Status Date / Time No Known Allergies Allergy Verified 06/19/17 03:42 - Anesthesia Plan Free Text/Narrative:: Talked with the patient extensively about the procedure. I also explained the possibility of placing additional vascular access including but not limited to PIV, CVL, Arterial Line. Pt understands and wishes to proceed at this time. - Acknowledgements Anesthesia Type Planned: General Anesthesia Pt an Appropriate Candidate for the Planned Anesthesia: Yes Alternatives and Risks of Anesthesia Discussed w Pt/Guardian: Yes Pt/Guardian Understands and Agrees with Anesthesia Plan: Yes PreAnesthesia Questionnaire HEENT History: Reports: None Cardiovascular History: Reports: Hypertension Respiratory History: Reports: None Gastrointestinal History: Reports: None Genitourinary History: Reports: None INVESTIGATION SPECIALIST History: Reports: Musculoskeletal History: Reports: None Neurological History: Reports: None Psychiatric History: Reports: Anxiety Endocrine/Metabolic History: Reports: Obesity/BMI 30+ Hematologic History: Reports: None Immunologic History: Reports: None Oncologic (Cancer) History: Reports: Malignant Melanoma, Ovarian Other Oncologic History: melanoma Dermatologic History: Reports: None - Infectious Disease History Infectious Disease History: Reports: Other (See Below) Other Infectious Disease History: Had Sepsis after her cancer surgery - Past Surgical History Head Surgeries/Procedures: Reports: None HEENT Surgical History: Reports: None Cardiovascular Surgical History: Reports: None GI Surgical History: Reports: None Female Surgical History: Reports: Hysterectomy Oncologic Surgical History: Reports: Other (See Below) (Excision melanoma lesion on the left arm) - SUBSTANCE USE Smoking Status *Q: Current Every Day Smoker (25 Year Smoker) Tobacco Use Within Last Twelve Months: Cigarettes Second Hand Smoke Exposure: No Recreational Drug Use History: No - HOME MEDS Home Medications: Home Meds Estradiol 1 mg PO DAILY 06/18/17 [History] Furosemide 20 mg PO DAILY 06/18/17 [History] LORazepam 0.5 mg PO Q6HR PRN MDD anxiety 06/18/17 [History] Lisinopril/Hydrochlorothiazide [Lisinopril-Hctz 20-25 mg Tab] 1 each PO DAILY [History] buPROPion [Wellbutrin SR] 150 mg PO DAILY 06/18/17 [History] Acetaminophen [Tylenol] 650 mg PO Q4HR PRN 06/19/17 [History] - CURRENT (IN HOUSE) MEDS Current Meds: Current Medications Ciprofloxacin/Dextrose 400 mg/ (Premix) 200 mls @ 200 mls/hr IV Q12H [facility] Last Admin: 06/20/17 02:05 Dose: 200 mls/hr Metronidazole 500 mg/ Premix 100 mls @ 100 mls/hr IV Q8H [facility] Last Admin: 06/20/17 03:50 Dose: 100 mls/hr Sodium Chloride (Normal Saline) 1,000 mls @ 150 mls/hr IV ASDIRECTED [facility] Last Admin: 06/20/17 08:23 Dose: 150 mls/hr Morphine Sulfate (Morphine) 2 mg IVPUSH Q3H PRN PRN Reason: Pain Last Admin: 06/19/17 16:19 Dose: 2 mg Ondansetron HCl (Zofran) 4 mg IVPUSH Q3H PRN PRN Reason: Nausea/Vomiting Discontinued Medications Sodium Chloride (Normal Saline) 1,000 mls @ 999 mls/hr IV STAT ONE Stop: 06/19/17 00:19 Last Admin: 06/18/17 23:32 Dose: 999 mls/hr Sodium Chloride (Normal Saline) 1,000 mls @ 150 mls/hr IV STAT [facility] Last Admin: 06/19/17 11:55 Dose: 150 mls/hr Lactated Ringer's (Ringers, Lactated) 1,000 mls @ 1,000 mls/hr IV .BOLUS [facility] Last Admin: 06/19/17 13:09 Dose: 1,000 mls/hr Lactated Ringer's (Ringers, Lactated) 1,000 mls @ 999 mls/hr IV STAT [facility] Ketorolac Tromethamine (Toradol) 30 mg IVPUSH ONETIME ONE Stop: 06/18/17 23:20 Last Admin: 06/18/17 23:33 Dose: 30 mg Ondansetron HCl (Zofran) 8 mg IVPUSH ONETIME ONE Stop: 06/18/17 23:20 Last Admin: 06/18/17 23:32 Dose: 8 mg
[2017-06-20] MEDS ORDERED: Propofol 200 MG/20 ML SDV ONE (10:13)
[2017-06-20] MEDS ORDERED: HYDROmorphone 2 MG/ML SDV ONE (10:13)
[2017-06-20] MEDS ORDERED: fentaNYL 100 MCG/2 ML SDV ONE (10:13)
[2017-06-20] MEDS ORDERED: diphenhydrAMINE 50 MG/ML SDV ONE (10:15)
[2017-06-20] MEDS ORDERED: Neostigmine Methylsulfate 1 MG/ML 5 ML Syringe ONE (10:15)
[2017-06-20] MEDS ORDERED: Glycopyrrolate 0.2 MG/ML SDV ONE ×2 (10:15→15:22)
[2017-06-20] MEDS ORDERED: Ondansetron 4 MG/2 ML SDV ONE (10:15)
[2017-06-20] MEDS ORDERED: Rocuronium 10 MG/ML 10 ML Syringe ONE (10:15)
[2017-06-20] MEDS ORDERED: Midazolam 1 MG/ML 2 ML SDV ONE (10:16)
[2017-06-20] MEDS ORDERED: fentaNYL 100 MCG/2 ML SDV IVPUSH PRN (11:42)
[2017-06-20] MEDS ORDERED: Bupivacaine 0.5% 30 ML SDV ONE ×2 (12:08→14:35)
[2017-06-20] MEDS ORDERED: Octyl 2-Cyanoacrylate 1 Tube ONE (12:08)
[2017-06-20] MEDS ORDERED: Ketamine 500 mg/10 ML MDV ONE (14:22)
[2017-06-20] MEDS ORDERED: ePHEDrine 50 MG/ML SDV ONE (14:35)
[2017-06-20] MEDS ORDERED: Bupivacaine 0.5% 10 ML SDV ONE (14:35)
[2017-06-20] MEDS ORDERED: Arista AH Absorbable Hemostat ONE (15:04)
[2017-06-20] MEDS ORDERED: Phenylephrine/Normal Saline 100 MCG/ML 10 ML Syringe ONE (15:39)
[2017-06-20] MEDS ORDERED: Metoclopramide 10 MG/2 ML SDV IV PRN (15:56)
[2017-06-20] MEDS ORDERED: Acetaminophen 325 MG Tab PO PRN (15:56)
[2017-06-20] MEDS ORDERED: Acetaminophen/oxyCODONE 325-5 MG Tab PO PRN (15:56)
[2017-06-20] MEDS ORDERED: Promethazine 25 MG/ML SDV IM PRN (15:56)
[2017-06-20] MEDS ORDERED: Sodium Chloride 0.9% 1,000 ML IV SCH (16:00)
[2017-06-20] MEDS ORDERED: Sodium Chloride 0.9% 1,000 ML IV ONE (16:05)
--- NOTE | 2017-06-20 16:05 | PCM.OPNOTE ---
- General Post-Op/Procedure Note Date of Surgery/Procedure: 06/20/17 Operative Procedure(s): Laparoscopic converted to open cholecystectomy Findings: Severely inflamed and hemorrhagic appearing gallbladder with very short cystic duct. Common bile duct clearly identified during case. Pre Op Diagnosis: Acute cholecystitis Post-Op Diagnosis: Severely inflamed and hemorrhagic cholecystitis Anesthesia Technique: General ET Tube Primary Surgeon: Alison Hazel Secondary Surgeon: Panchito Abbasi Reason Rollway Worker Was Necessary: Difficult anatomy and extremely difficult case due to large amount of inflammation Pathology: Gallbladder Fluid Replacement, Intraop: 2,000 Output, Urine Amount: 125 EBL in mLs: 300 Surgical Drain/Tube Type: Chivo Drain Condition: Fair
--- NOTE | 2017-06-20 16:13 | PCM.POSTAN ---
POST ANESTHESIA ASSESSMENT - MENTAL STATUS Mental Status: Somnolent - VITAL SIGNS Pulse Rate: 77 SaO2: 97 Resp Rate: 15 Blood Pressure: 109/63 - RESPIRATORY Respiratory Status: Respiratory Rate WNL, Airway Patent, O2 Saturation Stable, Supplemental Oxygen - CARDIOVASCULAR CV Status: Pulse Rate WNL, Blood Pressure Stable - GASTROINTESTINAL GI Status: No Symptoms - PAIN Pain Score: 0 - POST OP HYDRATION Hydration Status: Adequate & Stable (to icu for obs)
[2017-06-20] MEDS: HYDROmorphone/Normal Saline 6 MG/30 ML PCA Vial IV PRN (16:20)
[2017-06-20 17:03] LABS: CHLORIDE,CL 110 mmol/L (98-110); SODIUM,NA 139 mmol/L (136-146)
[2017-06-20] MEDS: Piperacillin/Tazobactam 3.375 GM in Sodium Chloride 0.9% 50 ML IV SCH ×2 (17:46→22:06)
[2017-06-20] MEDS ORDERED: Magnesium Sulfate/Water 2 GM in Premix Bag 1 BAG IV ONE (18:02)
[2017-06-20] MEDS ORDERED: HYDROmorphone 1 MG/ML Syringe IVPUSH PRN (18:11)
--- NOTE | 2017-06-20 21:59 | OR ---
SURGEON: IBRAHIMA HORAN MD DATE OF PROCEDURE: 06/20/2017 PREOPERATIVE DIAGNOSIS: Acute cholecystitis secondary to cholelithiasis. POSTOPERATIVE DIAGNOSIS: Same PROCEDURE PERFORMED: Laparoscopic converted to open cholecystectomy. LOG BRANDER: Panchito Abbasi M.D. ANESTHESIA: General endotracheal anesthesia. FLUIDS: 2000 mL of crystalloid. ESTIMATED BLOOD LOSS: 300 mL. URINE OUTPUT: 125 mL. FINDINGS: Severely inflamed gallbladder with petechial hemorrhage across the gallbladder wall. Gallbladder containing large stones. COMPLICATIONS: None. INDICATIONS: The patient is a 41-year-old female who presented with 5 days of right upper quadrant abdominal pain, hypotension, and dehydration with acute renal failure. She was admitted to the Medicine Service. An MRCP revealed a distended appearing gallbladder with a stone impacted at the neck, but no evidence of choledocholithiasis. The patient was resuscitated and her kidney function improved. The patient's right upper quadrant pain never fully resolved, and the decision was made to proceed with a laparoscopic possible open cholecystectomy. The patient and I discussed both procedures. I explained to her that should I be unable to perform this safely in a laparoscopic manner, we will be converting to open. Given the amount of pain that she is in, and how long this has been going on, I was concerned that we would be going open. We discussed the expected perioperative course for both procedures as well as the risks including bleeding, infection, or damage to surrounding structures. The patient verbalized understanding and wishes to proceed. PROCEDURE IN DETAIL: The patient was brought into the operating room, placed on the OR table in supine position. A time-out was completed verifying the patient's name, age, date of , allergies, and procedure to be performed. General endotracheal anesthesia was induced. The left arm was tucked to the patient's side, and a Amaya catheter placed. The abdomen was prepped and draped in usual standard fashion. I anesthetized the supraumbilical midline with 0.5% Marcaine plain. A supraumbilical midline incision was made using an 11 blade. Cautery was used to dissect down to the level of subcutaneous fat. [place] retractors were used to bluntly dissect down to the level of the fascia. The fascia was elevated with Dede graspers and incised sharply with the curved Meyers scissors. 0 Vicryl sutures were placed on either side of the fascia to facilitate closure later on. A 12 mm Patti trocar was then inserted in the abdomen and the abdomen insufflated. A 5 mm 30 degree scope was inserted in the abdomen, and I inspected the area underneath my incision. There was no evidence of damage to surrounding structures. The patient was then placed into reverse Trendelenburg position and airplaned slightly to the left. Three more trocars were placed in the following locations; one in the epigastric area, one in the right flank, and one in the right subcostal margin along the midclavicular line. I swept the omentum away from the gallbladder and noted the gallbladder to be covered in small petechiae and to be severely inflamed. There was a small amount of blood below the gallbladder even before I started. A photograph was taken of the gallbladder prior to any dissection. Given that the gallbladder was tense and inflamed, I placed a laparoscopic needle in the dome of the gallbladder to aspirate any fluid that was inside it to allow for better manipulation. The patient had cloudy appearing green fluid in the gallbladder itself. Approximately 40 mL were aspirated. The dome of the gallbladder was then grasped with an atraumatic grasper and lifted cranially. This allowed visualization of the infundibulum. The infundibulum itself was covered in a thickened inflamed layer of peritoneal fat. Hook cautery was used to incise this, and I used a gentle suction to peel this layer away. It was evident that this was going to be a difficult case given the amount of inflammation around the cystic duct and artery. I attempted to take down the gallbladder in a dome down fashion; however, the gallbladder itself was extremely thickened and I could not create a plane between the gallbladder and liver. I was able to clear away the cystic duct, which was very short. I could see it inserting on the common bile duct. I attempted to identify my cystic artery, but due to the intense inflammation around the area, I was unable to do so. I was able to identify the right hepatic artery, which was running medial and posterior to the gallbladder. The gallbladder wall was adhered to this artery. Given the amount of inflammation and the difficulty of the patient's anatomy, the decision was made to convert to open. I called my colleague, Dr. Panchito Abbasi in to assist with the case. A 10 blade was used to connect the epigastric and subcostal incisions and make a Dede incision in the right upper quadrant. Once I had entered the abdomen, moistened roll laps were placed to retract the surrounding bowel and omentum. At this point in time, Dr. Panchito Abbasi scrubbed into the case. We were able to identify my previous area of dissection. It was clear that the cystic duct was very short as we could see both the proximal and distal ends of the common bile duct being tented by the cystic duct when we retracted the gallbladder. We were able to identify the hepatic artery as well. The right angle was used to clear off the cystic duct, and a 10 mm clip channel lip wetter was used to place 2 clips along the cystic duct. Given its short nature, the gallbladder was tied off using an 0 Vicryl suture to allow us to leave the 2 clips on the cut end of the cystic duct. Metzenbaum scissors was used to cut across the proximal gallbladder between the suture and clips. The posterior wall of the gallbladder was very inflamed. The decision was made to take the gallbladder in a dome down fashion to allow better retraction and exposure of this area. Even doing this, the gallbladder was intensely adhered to the gallbladder fossa, and we encountered a large amount of oozing along the gallbladder bed. Dr. Abbasi was able to dissect down to the level of the proximal gallbladder. A right angle was used to meticulously dissect through the inflamed tissue. We were able to identify a couple small arterial branches that came off the hepatic artery. These were clipped and ligated. No single cystic artery was noted. The gallbladder was then removed from the field and sent to pathology. During our manipulation, a rent was made in the gallbladder, and several large stones were identified. These were sent with the gallbladder itself. Direct pressure was then held to the gallbladder bed for a total of 2 minutes. After this was done, we inspected our operative field. It appeared to be largely hemostatic, but Surgicel and Barbara were applied to the gallbladder fossa. Two more minutes of pressure were held to the gallbladder bed and then we reinspected our operative field. It appeared to be hemostatic. A 19-Upper [place] Chivo drain was then placed through the right flank port site and laid in the operative field. It was secured to the abdominal wall with 2-0 silk suture. All of the laps were removed, and we began our abdominal closure. The peritoneum and posterior rectus fascia were closed with a running 0 Vicryl suture. The abdominal wall fascia was closed with interrupted 0 Ethibond sutures. The On-Q pump was placed overlying the fascial closure. The subcutaneous fat was closed with layers of running 3-0 Vicryl suture. The skin was closed with skin violet. My supraumbilical incision was then closed. Interrupted 0 Vicryl sutures were used in the fascia, and the skin was closed with skin violet. Sterile dressings were applied. The patient was taken to the PACU in stable condition. SANDRA HINKLE /[id number] KEVEN
[2017-06-20] MEDS: Cyclobenzaprine 5 MG Tab PO SCH (22:06)
[2017-06-21] MEDS ORDERED: Sodium Chloride 0.9% 1,000 ML IV ONE (00:17)
[2017-06-21] MEDS: Sodium Chloride 0.9% 1,000 ML IV SCH ×2 (01:35→08:00)
[2017-06-21] MEDS: HYDROmorphone/Normal Saline 6 MG/30 ML PCA Vial IV PRN (03:28)
[2017-06-21] MEDS: Piperacillin/Tazobactam 3.375 GM in Sodium Chloride 0.9% 50 ML IV SCH ×4 (04:39→22:48)
[2017-06-21] MEDS ORDERED: diphenhydrAMINE 50 MG/ML SDV IVPUSH PRN (04:56)
[2017-06-21] MEDS: Cyclobenzaprine 5 MG Tab PO SCH ×3 (05:15→22:46)
[2017-06-21 06:57] LABS: CHLORIDE,CL 105 mmol/L (98-110); SODIUM,NA 136 mmol/L (136-146)
[2017-06-21] MEDS ORDERED: Omeprazole 20 MG Cap.CR PO SCH (07:30)
[2017-06-21] MEDS ORDERED: Magnesium Sulfate/Water 2 GM in Premix Bag 1 BAG IV ONE (07:45)
[2017-06-21] MEDS: Ciprofloxacin in D5W 400 MG in Premix Bag 1 BAG IV SCH ×2 (08:36)
[2017-06-21] MEDS ORDERED: Acetaminophen/oxyCODONE 325-10 MG Tab PO PRN (09:09)
[2017-06-21] MEDS: Morphine 2 MG/ML Syringe IVPUSH PRN ×2 (09:20→23:30)
[2017-06-21] MEDS: Acetaminophen/oxyCODONE 325-5 MG Tab PO PRN ×3 (09:30→20:30)
[2017-06-21] MEDS ORDERED: Magnesium Sulfate/Water 4 GM in Premix Bag 1 BAG IV ONE (09:48)
[2017-06-21] MEDS ORDERED: Sodium Chloride 0.9% 1,000 ML IV SCH (09:51)
--- NOTE | 2017-06-21 09:58 | PCM.SURGPN ---
- General Info Date of Service: 06/21/17 Date of Surgery/Procedure: 06/20/17 POD#: 1 Functional Status: Reports: Pain Controlled, Tolerating Diet, Urinating, Other ( Patient feeling "itchy" since starting dilaudid [employer]. Patient tolerating clear liquid diet. Pain controlled overall. UOP adequate. BUN/Cr WNL. Hgb stable. ) - Review of Systems General: Reports: No Symptoms Pulmonary: Reports: No Symptoms Cardiovascular: Reports: No Symptoms Gastrointestinal: Reports: Abdominal Pain (along incision) - Patient Data Vitals - Most Recent: Last Vital Signs Temp 36.7 C 06/21/17 08:00 Pulse 73 06/21/17 08:00 Resp 15 06/21/17 08:00 BP 98/39 L 06/21/17 08:00 Pulse Ox 93 L 06/21/17 08:00 Weight - Most Recent: 106.4 kg I&O - Last 24 Hours: Intake & Output 06/20/17 06/21/17 06/21/17 22:59 06:59 14:59 Intake Total 6150 1630 25 Output Total 990 515 Balance 5160 1115 25 Lab Results Last 24 Hrs: Laboratory Results - last 24 hr 06/20/17 06/20/17 06/20/17 Range/Units 16:35 16:35 16:35 WBC 9.40 (4.0-11.0) K/uL RBC 3.84 L (4.30-5.90) M/uL Hgb 11.9 L (12.0-16.0) g/dL Hct 36.8 (36.0-46.0) % MCV 95.8 (80.0-98.0) fL MCH 31.0 (27.0-32.0) pg MCHC 32.3 (31.0-37.0) g/dL RDW Std Deviation 48.9 (28.0-62.0) fl RDW Coeff of Ana 14 (11.0-15.0) % Plt Count 148 L (150-400) K/uL MPV 11.40 (7.40-12.00) fL Neut % (Auto) 82.2 H (48.0-80.0) % Lymph % (Auto) 11.3 L (16.0-40.0) % Cottle % (Auto) 5.9 (0.0-15.0) % Eos % (Auto) 0.5 (0.0-7.0) % Baso % (Auto) 0.1 (0.0-1.5) % Neut # (Auto) 7.7 H (1.4-5.7) K/uL Lymph # (Auto) 1.1 (0.6-2.4) K/uL Cottle # (Auto) 0.6 (0.0-0.8) K/uL Eos # (Auto) 0.1 (0.0-0.7) K/uL Baso # (Auto) 0.0 (0.0-0.1) K/uL Nucleated RBC % 0.0 /100WBC Nucleated RBCs # 0 K/uL Sodium 139 (136-146) mmol/L Potassium 4.4 (3.5-5.1) mmol/L Chloride 110 (98-110) mmol/L Carbon Dioxide 21 (21-31) mmol/L BUN 13 (6.0-23.0) mg/dL Creatinine 1.0 (0.6-1.5) mg/dL Est Cr Clr Drug Dosing 85.44 mL/min Estimated GFR (MDRD) > 60.0 ml/min Glucose 87 (60-110) mg/dL Calcium 8.0 L (8.8-10.8) mg/dL Phosphorus 2.2 L (2.4-4.7) mg/dL Magnesium 1.3 L (1.5-2.3) mEq/L Total Bilirubin 0.5 (0.1-1.5) mg/dL AST 136 H (5-40) IU/L ALT 149 H (8-54) IU/L Alkaline Phosphatase 64 (40-150) Total Protein 5.2 L (6.0-8.0) g/dL Albumin 3.2 L (3.5-5.0) g/dL Globulin 2.0 (2.0-3.5) g/dL Albumin/Globulin Ratio 1.6 (1.3-2.8) 06/21/17 06/21/17 Range/Units 06:00 06:00 WBC 9.14 (4.0-11.0) K/uL RBC 3.69 L (4.30-5.90) M/uL Hgb 11.7 L (12.0-16.0) g/dL Hct 35.9 L (36.0-46.0) % MCV 97.3 (80.0-98.0) fL MCH 31.7 (27.0-32.0) pg MCHC 32.6 (31.0-37.0) g/dL RDW Std Deviation 51.0 (28.0-62.0) fl RDW Coeff of Ana 14 (11.0-15.0) % Plt Count 153 (150-400) K/uL MPV 12.00 (7.40-12.00) fL Neut % (Auto) (48.0-80.0) % Lymph % (Auto) (16.0-40.0) % Cottle % (Auto) (0.0-15.0) % Eos % (Auto) (0.0-7.0) % Baso % (Auto) (0.0-1.5) % Neut # (Auto) (1.4-5.7) K/uL Lymph # (Auto) (0.6-2.4) K/uL Cottle # (Auto) (0.0-0.8) K/uL Eos # (Auto) (0.0-0.7) K/uL Baso # (Auto) (0.0-0.1) K/uL Nucleated RBC % 0.0 /100WBC Nucleated RBCs # 0 K/uL Sodium 136 (136-146) mmol/L Potassium 4.4 (3.5-5.1) mmol/L Chloride 105 (98-110) mmol/L Carbon Dioxide 26 (21-31) mmol/L BUN 8 (6.0-23.0) mg/dL Creatinine 1.0 (0.6-1.5) mg/dL Est Cr Clr Drug Dosing 85.44 mL/min Estimated GFR (MDRD) > 60.0 ml/min Glucose 94 (60-110) mg/dL Calcium 7.5 L (8.8-10.8) mg/dL Phosphorus 1.7 L (2.4-4.7) mg/dL Magnesium 1.3 L (1.5-2.3) mEq/L Total Bilirubin 0.9 (0.1-1.5) mg/dL AST 90 H (5-40) IU/L ALT 127 H (8-54) IU/L Alkaline Phosphatase 62 (40-150) Total Protein 4.8 L (6.0-8.0) g/dL Albumin 3.1 L (3.5-5.0) g/dL Globulin 1.7 L (2.0-3.5) g/dL Albumin/Globulin Ratio 1.8 (1.3-2.8) Med Orders - Current: Current Medications Acetaminophen (Tylenol) 650 mg PO Q6H PRN PRN Reason: Pain (mild 1-3) Cyclobenzaprine HCl (Flexeril) 5 mg PO TID [facility] Last Admin: 06/21/17 05:15 Dose: 5 mg Diphenhydramine HCl (Benadryl) 25 mg IVPUSH Q4H PRN PRN Reason: Itching Last Admin: 06/21/17 05:48 Dose: 25 mg Piperacillin Sod/Tazobactam (Sod 3.375 gm/ Sodium Chloride) 50 mls @ 100 mls/ hr IV Q6H [facility] Last Admin: 06/21/17 04:39 Dose: 100 mls/hr Magnesium Sulfate 4 gm/ Premix 100 mls @ 50 mls/hr IV ONETIME ONE Stop: 06/21/17 11:47 Sodium Chloride (Normal Saline) 1,000 mls @ 150 mls/hr IV ASDIRECTED [facility] Metoclopramide HCl (Reglan) 5 mg IV Q6H PRN PRN Reason: Nausea Morphine Sulfate (Morphine) 2 mg IVPUSH Q1H PRN PRN Reason: Abdominal Pain Last Admin: 06/21/17 09:20 Dose: 2 mg Omeprazole (Omeprazole) 20 mg PO ACBREAKFAST [facility] Ondansetron HCl (Zofran) 4 mg IVPUSH Q6H PRN PRN Reason: Nausea/Vomiting Oxycodone/Acetaminophen (Percocet 325-5 Mg) 2 tab PO Q4H PRN PRN Reason: Abdominal Pain Last Admin: 06/21/17 09:30 Dose: 2 tab Polyethylene Glycol (Miralax) 17 gm PO DAILY [facility] Promethazine HCl (Phenergan) 25 mg IM Q6H PRN PRN Reason: Nausea Sodium Phosphate (Neutra-Phos) 250 mg PO BID [facility] Discontinued Medications Bupivacaine HCl (Marcaine 0.5%) Confirm Administered Dose 30 ml .ROUTE .STK-MED ONE Stop: 06/20/17 12:09 Bupivacaine HCl (Marcaine 0.5%) Confirm Administered Dose 90 ml .ROUTE .STK-MED ONE Stop: 06/20/17 14:36 Bupivacaine HCl (Sensorcaine-Mpf 0.5%) Confirm Administered Dose 10 ml .ROUTE .STK-MED ONE Stop: 06/20/17 14:36 Diphenhydramine HCl (Benadryl) Confirm Administered Dose 50 mg .ROUTE .STK-MED ONE Stop: 06/20/17 10:16 Ephedrine Sulfate (Ephedrine Sulfate) Confirm Administered Dose 50 mg .ROUTE .STK-MED ONE Stop: 06/20/17 14:36 Fentanyl (Sublimaze) Confirm Administered Dose 100 mcg .ROUTE .STK-MED ONE Stop: 06/20/17 10:14 Fentanyl (Sublimaze) 50 mcg IVPUSH Q5M PRN PRN Reason: Pain (severe 7-10) Stop: 06/20/17 16:00 Glycopyrrolate (Robinul) Confirm Administered Dose 0.4 mg .ROUTE .STK-MED ONE Stop: 06/20/17 10:16 Glycopyrrolate (Robinul) Confirm Administered Dose 0.2 mg .ROUTE .ST-MED ONE Stop: 06/20/17 15:23 Hydromorphone HCl (Dilaudid) Confirm Administered Dose 2 mg .ROUTE .STK-MED ONE Stop: 06/20/17 10:14 Hydromorphone HCl (Dilaudid Cruller Maker 6 Mg In Ns 30 Ml) 0 mg IV ASDIRECTED PRN; Protocol PRN Reason: Abdominal Pain Last Admin: 06/21/17 03:28 Dose: 6 mg Hydromorphone HCl (Dilaudid) 1 mg IVPUSH Q1H PRN PRN Reason: Pain Last Admin: 06/20/17 18:20 Dose: 1 mg Sodium Chloride (Normal Saline) 1,000 mls @ 999 mls/hr IV STAT ONE Stop: 06/19/17 00:19 Last Admin: 06/18/17 23:32 Dose: 999 mls/hr Sodium Chloride (Normal Saline) 1,000 mls @ 150 mls/hr IV STAT [facility] Last Admin: 06/19/17 11:55 Dose: 150 mls/hr Ciprofloxacin/Dextrose 400 mg/ (Premix) 200 mls @ 200 mls/hr IV Q12H [facility] Last Admin: 06/21/17 08:36 Dose: Not Given Metronidazole 500 mg/ Premix 100 mls @ 100 mls/hr IV Q8H [facility] Last Admin: 06/20/17 11:44 Dose: 100 mls/hr Sodium Chloride (Normal Saline) 1,000 mls @ 150 mls/hr IV ASDIRECTED [facility] Last Admin: 06/20/17 08:23 Dose: 150 mls/hr Lactated Ringer's (Ringers, Lactated) 1,000 mls @ 1,000 mls/hr IV .BOLUS [facility] Last Admin: 06/19/17 13:09 Dose: 1,000 mls/hr Lactated Ringer's (Ringers, Lactated) 1,000 mls @ 999 mls/hr IV STAT [facility] Sodium Chloride (Normal Saline) 1,000 mls @ 125 mls/hr IV ASDIRECTED [facility] Stop: 06/21/17 00:34 Last Admin: 06/20/17 17:18 Dose: 125 mls/hr Sodium Chloride (Normal Saline) 1,000 mls @ 1,000 mls/hr IV .Bolus ONE Stop: 06/20/17 17:04 Last Admin: 06/20/17 17:19 Dose: Not Given Magnesium Sulfate 2 gm/ Premix 50 mls @ 25 mls/hr IV ONETIME ONE Stop: 06/20/17 20:01 Last Admin: 06/20/17 18:23 Dose: 25 mls/hr Sodium Chloride (Normal Saline) 1,000 mls @ 999 mls/hr IV .BOLUS ONE Stop: 06/21/17 01:17 Last Admin: 06/21/17 00:20 Dose: 999 mls/hr Sodium Chloride (Normal Saline) 1,000 mls @ 150 mls/hr IV ASDIRECTED [facility] Last Admin: 06/21/17 08:00 Dose: 150 mls/hr Magnesium Sulfate 2 gm/ Premix 50 mls @ 50 mls/hr IV ONETIME ONE Stop: 06/21/17 08:44 Last Admin: 06/21/17 07:58 Dose: 50 mls/hr Ketamine HCl (Ketalar) Confirm Administered Dose 500 mg .ROUTE .K-MED ONE Stop: 06/20/17 14:23 Ketorolac Tromethamine (Toradol) 30 mg IVPUSH ONETIME ONE Stop: 06/18/17 23:20 Last Admin: 06/18/17 23:33 Dose: 30 mg Lidocaine HCl (Xylocaine-Mpf 1%) Confirm Administered Dose 5 ml .ROUTE .STK-MED ONE Stop: 06/20/17 10:16 Midazolam HCl (Versed 1 Mg/Ml) Confirm Administered Dose 4 mg .ROUTE .STK-MED ONE Stop: 06/20/17 10:17 Morphine Sulfate (Morphine) 2 mg IVPUSH Q3H PRN PRN Reason: Pain Last Admin: 06/19/17 16:19 Dose: 2 mg Neostigmine Methylsulfate (Neostigmine) Confirm Administered Dose 5 mg .ROUTE .STK-MED ONE Stop: 06/20/17 10:16 Non-Formulary Medication (Barbara Ah Absorbable Hemostat) Confirm Administered Dose 1 each .ROUTE .STK-MED ONE Stop: 06/20/17 15:05 Octyl Cyanoacrylate (Dermabond Advance) Confirm Administered Dose 1 applic .ROUTE .STK-MED ONE Stop: 06/20/17 12:09 Omeprazole (Omeprazole) 20 mg PO ACBREAKFAST [place] Last Admin: 06/21/17 06:30 Dose: 20 mg Ondansetron HCl (Zofran) 8 mg IVPUSH ONETIME ONE Stop: 06/18/17 23:20 Last Admin: 06/18/17 23:32 Dose: 8 mg Ondansetron HCl (Zofran) 4 mg IVPUSH Q3H PRN PRN Reason: Nausea/Vomiting Ondansetron HCl (Zofran) Confirm Administered Dose 4 mg .ROUTE .STK-MED ONE Stop: 06/20/17 10:16 Oxycodone/Acetaminophen (Percocet 325-5 Mg) 2 tab PO Q4H PRN PRN Reason: Pain (moderate 4-6) Oxycodone/Acetaminophen (Percocet 325-10 Mg) 1 tab PO Q4H PRN PRN Reason: Abdominal Pain Phenylephrine HCl (Phenylephrine In Ns 100 Mcg/Ml) Confirm Administered Dose 1 mg .ROUTE .STK-MED ONE Stop: 06/20/17 15:40 Propofol (Diprivan 20 Ml) Confirm Administered Dose 200 mg .ROUTE .STK-MED ONE Stop: 06/20/17 10:14 Rocuronium B[place]ft (Zemuron) Confirm Administered Dose 100 mg .ROUTE .STK-MED ONE Stop: 06/20/17 10:16 - Exam Wound/Incisions: Healing Well, Dressing Dry and Intact Quality Assessment: Supplemental Oxygen General: Alert, Oriented HEENT: Pupils Equal, Pupils Reactive Lungs: Clear to Auscultation, Normal Respiratory Effort Cardiovascular: Regular Rate, Regular Rhythm GI/Abdominal Exam: Soft, Non-Tender, No Distention, No Mass, Other (Drain with sanguinous output) Skin: Warm, Dry, Intact Neurological: No New Focal Deficit Psy/Mental Status: Alert, Normal Affect, Normal Mood - Problem List & Annotations (1) Biliary colic SNOMED Code(s): 00405439 Code(s): K80.50 - CALCULUS OF BILE DUCT W/O CHOLANGITIS OR CHOLECYST W/O OBST Status: Acute Current Visit: Yes (2) Hypotension SNOMED Code(s): 42528358 Code(s): I95.9 - HYPOTENSION, UNSPECIFIED Status: Acute Current Visit: Yes (3) Acute renal insufficiency SNOMED Code(s): 280935551 Code(s): N28.9 - DISORDER OF KIDNEY AND URETER, UNSPECIFIED Status: Acute Current Visit: Yes - Problem List Review Problem List Initiated/Reviewed/Updated: Yes - My Orders Last 24 Hours: Active Orders 24 hr Category Date Time Status Patient Status [ADT] Routine ADT 06/20/17 15:56 Active Transfer Patient (Change bed) [ADT] Routine ADT 06/21/17 09:51 Ordered Bradycardia-Neuroaxis [employer] [RC] ROUTINE Care 06/20/17 11:42 Inactive Hypertension-Neuroaxis [employer] [RC] ROUTINE Care 06/20/17 11:42 Inactive Hypotension-Neuroaxis [employer] [RC] ROUTINE Care 06/20/17 11:42 Inactive Intake and Output [RC] Q4HR Care 06/20/17 15:57 Active Notify Provider Vital Signs [RC] PRN Care 06/20/17 15:57 Active Oxygen Therapy [RC] PRN Care 06/20/17 15:56 Active Pulse Oximetry [RC] CONTINUOUS Care 06/20/17 15:58 Inactive RT Incentive Spirometry [RC] ASDIRECTED Care 06/20/17 15:56 Active Remove Sim Catheter [Urinary Catheter Removal] [RC] Care 06/21/17 09:50 Active Per Unit Routine Up With Assistance [] ASDIRECTED Care 06/20/17 15:56 Active Vital Signs [RC] Q1H Care 06/20/17 15:56 Active Nothing Per Oral Diet [DIET] Diet 06/20/17 Lunch Active CBC W/O DIFF,HEMOGRAM [HEME] AM Lab 06/22/17 05:11 Ordered CBC W/O DIFF,HEMOGRAM [HEME] AM Lab 06/23/17 05:11 Ordered CBC W/O DIFF,HEMOGRAM [HEME] AM Lab 06/24/17 05:11 Ordered CMP [COMPREHENSIVE METABOLIC PN,CMP] [CHEM] AM Lab 06/22/17 05:11 Ordered CMP [COMPREHENSIVE METABOLIC PN,CMP] [CHEM] AM Lab 06/23/17 05:11 Ordered CMP [COMPREHENSIVE METABOLIC PN,CMP] [CHEM] AM Lab 06/24/17 05:11 Ordered MAGNESIUM [CHEM] AM Lab 06/22/17 05:11 Ordered MAGNESIUM [CHEM] AM Lab 06/23/17 05:11 Ordered MAGNESIUM [CHEM] AM Lab 06/24/17 05:11 Ordered PHOSPHORUS [CHEM] AM Lab 06/22/17 05:11 Ordered PHOSPHORUS [CHEM] AM Lab 06/23/17 05:11 Ordered PHOSPHORUS [CHEM] AM Lab 06/24/17 05:11 Ordered Acetaminophen [Tylenol] Med 06/20/17 15:56 Active 650 mg PO Q6H PRN Acetaminophen/oxyCODONE [Percocet 325-5 MG] Med 06/21/17 09:12 Active 2 tab PO Q4H PRN Cyclobenzaprine [Flexeril] Med 06/20/17 22:00 Active 5 mg PO TID Magnesium Sulfate/Water [Magnesium Sulfate 4 GM in Med 06/21/17 09:48 Active Water 100 ML] 4 gm Premix Bag 1 bag IV ONETIME Metoclopramide [Reglan] Med 06/20/17 15:56 Active 5 mg IV Q6H PRN Morphine Med 06/21/17 09:08 Active 2 mg IVPUSH Q1H PRN Omeprazole Med 06/21/17 09:51 Ordered 20 mg PO ACBREAKFAST Ondansetron [Zofran] Med 06/20/17 15:56 Active 4 mg IVPUSH Q6H PRN Phosphorus #1 [Neutra-Phos] Med 06/21/17 10:00 Active 250 mg PO BID Piperacillin/Tazobactam [Piperacil-Tazobact] 3.375 gm Med 06/20/17 17:00 Active Sodium Chloride 0.9% [Normal Saline] 50 ml IV Q6H Polyethylene Glycol 3350 [MiraLAX] Med 06/21/17 10:00 Active 17 gm PO DAILY Promethazine [Phenergan] Med 06/20/17 15:56 Active 25 mg IM Q6H PRN Sodium Chloride 0.9% [Normal Saline] 1,000 ml Med 06/21/17 09:51 Ordered IV ASDIRECTED diphenhydrAMINE [Benadryl] Med 06/21/17 04:56 Active 25 mg IVPUSH Q4H PRN Medication Orders Acetaminophen (Tylenol) 650 mg PO Q6H PRN PRN Reason: Pain (mild 1-3) Cyclobenzaprine HCl (Flexeril) 5 mg PO TID [facility] Last Admin: 06/21/17 05:15 Dose: 5 mg Admin: 06/20/17 22:06 Dose: 5 mg Diphenhydramine HCl (Benadryl) 25 mg IVPUSH Q4H PRN PRN Reason: Itching Last Admin: 06/21/17 05:48 Dose: 25 mg Piperacillin Sod/Tazobactam (Sod 3.375 gm/ Sodium Chloride) 50 mls @ 100 mls/ hr IV Q6H [facility] Last Admin: 06/21/17 04:39 Dose: 100 mls/hr Infusion: 06/20/17 22:36 Dose: 100 mls/hr Admin: 06/20/17 22:06 Dose: 100 mls/hr Infusion: 06/20/17 18:16 Dose: 100 mls/hr Admin: 06/20/17 17:46 Dose: 100 mls/hr Magnesium Sulfate 4 gm/ Premix 100 mls @ 50 mls/hr IV ONETIME ONE Stop: 06/21/17 11:47 Sodium Chloride (Normal Saline) 1,000 mls @ 150 mls/hr IV ASDIRECTED [facility] Metoclopramide HCl (Reglan) 5 mg IV Q6H PRN PRN Reason: Nausea Morphine Sulfate (Morphine) 2 mg IVPUSH Q1H PRN PRN Reason: Abdominal Pain Last Admin: 06/21/17 09:20 Dose: 2 mg Omeprazole (Omeprazole) 20 mg PO ACBREAKFAST [facility] Ondansetron HCl (Zofran) 4 mg IVPUSH Q6H PRN PRN Reason: Nausea/Vomiting Oxycodone/Acetaminophen (Percocet 325-5 Mg) 2 tab PO Q4H PRN PRN Reason: Abdominal Pain Last Admin: 06/21/17 09:30 Dose: 2 tab Polyethylene Glycol (Miralax) 17 gm PO DAILY [facility] Promethazine HCl (Phenergan) 25 mg IM Q6H PRN PRN Reason: Nausea Sodium Phosphate (Neutra-Phos) 250 mg PO BID [facility] - Plan Plan (Free Text/Narrative):: Pain: Percocet q 4hr prn, IV MS 2mg q1hr prn severe pain, Flexeril 5mg po TID scheduled Cardiovascular: Needed one bolus of fluids last evening otherwise BP stable. Pulmonary: Encourage OOB activity and IS use GI: Can advance to a regular diet. Prn meds for nausea Renal: UOP adequate and BUN/Cr stable. Remove sim Heme: Stable ID: Continue IV zosyn for now. DVT: Hold off chemical prophylaxis for today. Can start tomorrow. SCDs and OOB activity. D/C omeprazole since taking regular diet. Will start home meds today and transfer out of ICU.
[2017-06-21] MEDS: Polyethylene Glycol 3350 Powder 17 GM Packet PO SCH (10:24)
[2017-06-21] MEDS: buPROPion 150 MG Tab.SR PO SCH (10:24)
[2017-06-21] MEDS: Phosphorus #1 250 MG Tab PO SCH ×2 (10:24→20:30)
[2017-06-21] MEDS: Ondansetron 4 MG/2 ML SDV IVPUSH PRN ×2 (16:41→23:28)
--- NOTE | 2017-06-21 18:00 | PCM48HPAN ---
Post Anesthesia Note - EVALUATION WITHIN 48HRS OF ANESTHETIC Vital Signs in Normal Range: Yes Patient Participated in Evaluation: Yes Respiratory Function Stable: Yes Airway Patent: Yes Cardiovascular Function Stable: Yes Hydration Status Stable: Yes Pain Control Satisfactory: Yes (off [employer], pain moderate) Nausea and Vomiting Control Satisfactory: Yes Mental Status Recovered: Yes
[2017-06-22] MEDS: Piperacillin/Tazobactam 3.375 GM in Sodium Chloride 0.9% 50 ML IV SCH ×4 (04:24→23:35)
[2017-06-22] MEDS: Omeprazole 20 MG Cap.CR PO SCH (06:42)
[2017-06-22] MEDS: Cyclobenzaprine 5 MG Tab PO SCH ×3 (06:47→21:10)
[2017-06-22] MEDS: Ondansetron 4 MG/2 ML SDV IVPUSH PRN ×2 (09:38→16:37)
[2017-06-22] MEDS: Morphine 2 MG/ML Syringe IVPUSH PRN (09:39)
[2017-06-22] MEDS: Phosphorus #1 250 MG Tab PO SCH ×2 (09:44→21:10)
[2017-06-22] MEDS: buPROPion 150 MG Tab.SR PO SCH (09:44)
[2017-06-22] MEDS: Polyethylene Glycol 3350 Powder 17 GM Packet PO SCH (09:44)
--- NOTE | 2017-06-22 09:50 | PCM.SURGPN ---
- General Info Date of Service: 06/22/17 Date of Surgery/Procedure: 06/20/17 POD#: 2 Functional Status: Reports: Pain Controlled, Tolerating Diet, Ambulating, Urinating - Review of Systems General: Reports: No Symptoms Pulmonary: Reports: No Symptoms Cardiovascular: Reports: No Symptoms Gastrointestinal: Reports: Abdominal Pain, Decreased Appetite Genitourinary: Reports: No Symptoms Musculoskeletal: Reports: No Symptoms - Patient Data Vitals - Most Recent: Last Vital Signs Temp 36.3 C 06/22/17 08:00 Pulse 89 06/22/17 08:00 Resp 20 06/22/17 08:00 BP 114/69 06/22/17 08:00 Pulse Ox 94 L 06/22/17 08:00 Weight - Most Recent: 106.4 kg I&O - Last 24 Hours: Intake & Output 06/21/17 06/22/17 06/22/17 22:59 06:59 14:59 Intake Total 610 400 Output Total 1720 1015 Balance -1110 -615 Lab Results Last 24 Hrs: Laboratory Results - last 24 hr 06/22/17 06/22/17 Range/Units 05:48 05:48 WBC 11.57 H (4.0-11.0) K/uL RBC 3.85 L (4.30-5.90) M/uL Hgb 11.8 L (12.0-16.0) g/dL Hct 36.8 (36.0-46.0) % MCV 95.6 (80.0-98.0) fL MCH 30.6 (27.0-32.0) pg MCHC 32.1 (31.0-37.0) g/dL RDW Std Deviation 48.8 (28.0-62.0) fl RDW Coeff of Ana 14 (11.0-15.0) % Plt Count 166 (150-400) K/uL MPV 11.90 (7.40-12.00) fL Nucleated RBC % 0.0 /100WBC Nucleated RBCs # 0 K/uL Sodium 138 (136-146) mmol/L Potassium 4.7 (3.5-5.1) mmol/L Chloride 106 (98-110) mmol/L Carbon Dioxide 26 (21-31) mmol/L BUN 4 L (6.0-23.0) mg/dL Creatinine 1.1 (0.6-1.5) mg/dL Est Cr Clr Drug Dosing 77.67 mL/min Estimated GFR (MDRD) 54.7 ml/min Glucose 107 (60-110) mg/dL Calcium 8.4 L (8.8-10.8) mg/dL Phosphorus 2.7 (2.4-4.7) mg/dL Magnesium 1.8 (1.5-2.3) mEq/L Total Bilirubin 0.9 (0.1-1.5) mg/dL AST 65 H (5-40) IU/L ALT 121 H (8-54) IU/L Alkaline Phosphatase 66 (40-150) Total Protein 5.4 L (6.0-8.0) g/dL Albumin 3.0 L (3.5-5.0) g/dL Globulin 2.4 (2.0-3.5) g/dL Albumin/Globulin Ratio 1.3 (1.3-2.8) Med Orders - Current: Current Medications Acetaminophen (Tylenol) 650 mg PO Q6H PRN PRN Reason: Pain (mild 1-3) Bupropion HCl (Wellbutrin Sr) 150 mg PO DAILY [facility] Last Admin: 06/22/17 09:44 Dose: 150 mg Cyclobenzaprine HCl (Flexeril) 5 mg PO TID [facility] Last Admin: 06/22/17 06:47 Dose: Not Given Diphenhydramine HCl (Benadryl) 25 mg IVPUSH Q4H PRN PRN Reason: Itching Last Admin: 06/21/17 05:48 Dose: 25 mg Piperacillin Sod/Tazobactam (Sod 3.375 gm/ Sodium Chloride) 50 mls @ 100 mls/ hr IV Q6H [facility] Last Admin: 06/22/17 04:24 Dose: 100 mls/hr Morphine Sulfate (Morphine) 2 mg IVPUSH Q1H PRN PRN Reason: Abdominal Pain Last Admin: 06/22/17 09:39 Dose: 2 mg Omeprazole (Omeprazole) 20 mg PO ACBREAKFAST [facility] Last Admin: 06/22/17 06:42 Dose: 20 mg Ondansetron HCl (Zofran) 4 mg IVPUSH Q6H PRN PRN Reason: Nausea/Vomiting Last Admin: 06/22/17 09:38 Dose: 4 mg Oxycodone/Acetaminophen (Percocet 325-5 Mg) 2 tab PO Q4H PRN PRN Reason: Abdominal Pain Last Admin: 06/21/17 20:30 Dose: 2 tab Polyethylene Glycol (Miralax) 17 gm PO DAILY [facility] Last Admin: 06/22/17 09:44 Dose: 17 gm Promethazine HCl (Phenergan) 25 mg IM Q6H PRN PRN Reason: Nausea Sodium Phosphate (Neutra-Phos) 250 mg PO BID [facility] Last Admin: 06/22/17 09:44 Dose: 250 mg Discontinued Medications Bupivacaine HCl (Marcaine 0.5%) Confirm Administered Dose 30 ml .ROUTE .STK-MED ONE Stop: 06/20/17 12:09 Bupivacaine HCl (Marcaine 0.5%) Confirm Administered Dose 90 ml .ROUTE .STK-MED ONE Stop: 06/20/17 14:36 Bupivacaine HCl (Sensorcaine-Mpf 0.5%) Confirm Administered Dose 10 ml .ROUTE .STK-MED ONE Stop: 06/20/17 14:36 Diphenhydramine HCl (Benadryl) Confirm Administered Dose 50 mg .ROUTE .STK-MED ONE Stop: 06/20/17 10:16 Ephedrine Sulfate (Ephedrine Sulfate) Confirm Administered Dose 50 mg .ROUTE .STK-MED ONE Stop: 06/20/17 14:36 Fentanyl (Sublimaze) Confirm Administered Dose 100 mcg .ROUTE .STK-MED ONE Stop: 06/20/17 10:14 Fentanyl (Sublimaze) 50 mcg IVPUSH Q5M PRN PRN Reason: Pain (severe 7-10) Stop: 06/20/17 16:00 Glycopyrrolate (Robinul) Confirm Administered Dose 0.4 mg .ROUTE .STK-MED ONE Stop: 06/20/17 10:16 Glycopyrrolate (Robinul) Confirm Administered Dose 0.2 mg .ROUTE .STK-MED ONE Stop: 06/20/17 15:23 Hydromorphone HCl (Dilaudid) Confirm Administered Dose 2 mg .ROUTE .STK-MED ONE Stop: 06/20/17 10:14 Hydromorphone HCl (Dilaudid Applications Support Lead 6 Mg In Ns 30 Ml) 0 mg IV ASDIRECTED PRN; Protocol PRN Reason: Abdominal Pain Last Admin: 06/21/17 03:28 Dose: 6 mg Hydromorphone HCl (Dilaudid) 1 mg IVPUSH Q1H PRN PRN Reason: Pain Last Admin: 06/20/17 18:20 Dose: 1 mg Sodium Chloride (Normal Saline) 1,000 mls @ 999 mls/hr IV STAT ONE Stop: 06/19/17 00:19 Last Admin: 06/18/17 23:32 Dose: 999 mls/hr Sodium Chloride (Normal Saline) 1,000 mls @ 150 mls/hr IV STAT [facility] Last Admin: 06/19/17 11:55 Dose: 150 mls/hr Ciprofloxacin/Dextrose 400 mg/ (Premix) 200 mls @ 200 mls/hr IV Q12H [facility] Last Admin: 06/21/17 08:36 Dose: Not Given Metronidazole 500 mg/ Premix 100 mls @ 100 mls/hr IV Q8H [facility] Last Admin: 06/20/17 11:44 Dose: 100 mls/hr Sodium Chloride (Normal Saline) 1,000 mls @ 150 mls/hr IV ASDIRECTED [facility] Last Admin: 06/20/17 08:23 Dose: 150 mls/hr Lactated Ringer's (Ringers, Lactated) 1,000 mls @ 1,000 mls/hr IV .BOLUS [facility] Last Admin: 06/19/17 13:09 Dose: 1,000 mls/hr Lactated Ringer's (Ringers, Lactated) 1,000 mls @ 999 mls/hr IV STAT [facility] Sodium Chloride (Normal Saline) 1,000 mls @ 125 mls/hr IV ASDIRECTED [facility] Stop: 06/21/17 00:34 Last Admin: 06/20/17 17:18 Dose: 125 mls/hr Sodium Chloride (Normal Saline) 1,000 mls @ 1,000 mls/hr IV .Bolus ONE Stop: 06/20/17 17:04 Last Admin: 06/20/17 17:19 Dose: Not Given Magnesium Sulfate 2 gm/ Premix 50 mls @ 25 mls/hr IV ONETIME ONE Stop: 06/20/17 20:01 Last Admin: 06/20/17 18:23 Dose: 25 mls/hr Sodium Chloride (Normal Saline) 1,000 mls @ 999 mls/hr IV .BOLUS ONE Stop: 06/21/17 01:17 Last Admin: 06/21/17 00:20 Dose: 999 mls/hr Sodium Chloride (Normal Saline) 1,000 mls @ 150 mls/hr IV ASDIRECTED [facility] Last Admin: 06/21/17 08:00 Dose: 150 mls/hr Magnesium Sulfate 2 gm/ Premix 50 mls @ 50 mls/hr IV ONETIME ONE Stop: 06/21/17 08:44 Last Admin: 06/21/17 07:58 Dose: 50 mls/hr Magnesium Sulfate 4 gm/ Premix 100 mls @ 50 mls/hr IV ONETIME ONE Stop: 06/21/17 11:47 Last Admin: 06/21/17 10:24 Dose: 50 mls/hr Sodium Chloride (Normal Saline) 1,000 mls @ 150 mls/hr IV ASDIRECTED [facility] Stop: 06/21/17 09:51 Ketamine HCl (Ketalar) Confirm Administered Dose 500 mg .ROUTE .STK-MED ONE Stop: 06/20/17 14:23 Ketorolac Tromethamine (Toradol) 30 mg IVPUSH ONETIME ONE Stop: 06/18/17 23:20 Last Admin: 06/18/17 23:33 Dose: 30 mg Lidocaine HCl (Xylocaine-Mpf 1%) Confirm Administered Dose 5 ml .ROUTE .STK-MED ONE Stop: 06/20/17 10:16 Metoclopramide HCl (Reglan) 5 mg IV Q6H PRN PRN Reason: Nausea Midazolam HCl (Versed 1 Mg/Ml) Confirm Administered Dose 4 mg .ROUTE .STK-MED ONE Stop: 06/20/17 10:17 Morphine Sulfate (Morphine) 2 mg IVPUSH Q3H PRN PRN Reason: Pain Last Admin: 06/19/17 16:19 Dose: 2 mg Neostigmine Methylsulfate (Neostigmine) Confirm Administered Dose 5 mg .ROUTE .STK-MED ONE Stop: 06/20/17 10:16 Non-Formulary Medication (Barbara Ah Absorbable Hemostat) Confirm Administered Dose 1 each .ROUTE .STK-MED ONE Stop: 06/20/17 15:05 Octyl Cyanoacrylate (Dermabond Advance) Confirm Administered Dose 1 applic .ROUTE .STK-MED ONE Stop: 06/20/17 12:09 Omeprazole (Omeprazole) 20 mg PO ACBREAKFAST [facility] Last Admin: 06/21/17 06:30 Dose: 20 mg Ondansetron HCl (Zofran) 8 mg IVPUSH ONETIME ONE Stop: 06/18/17 23:20 Last Admin: 06/18/17 23:32 Dose: 8 mg Ondansetron HCl (Zofran) 4 mg IVPUSH Q3H PRN PRN Reason: Nausea/Vomiting Ondansetron HCl (Zofran) Confirm Administered Dose 4 mg .ROUTE .STK-MED ONE Stop: 06/20/17 10:16 Oxycodone/Acetaminophen (Percocet 325-5 Mg) 2 tab PO Q4H PRN PRN Reason: Pain (moderate 4-6) Oxycodone/Acetaminophen (Percocet 325-10 Mg) 1 tab PO Q4H PRN PRN Reason: Abdominal Pain Phenylephrine HCl (Phenylephrine In Ns 100 Mcg/Ml) Confirm Administered Dose 1 mg .ROUTE .STK-MED ONE Stop: 06/20/17 15:40 Propofol (Diprivan 20 Ml) Confirm Administered Dose 200 mg .ROUTE .STK-MED ONE Stop: 06/20/17 10:14 Rocuronium [place] (Zemuron) Confirm Administered Dose 100 mg .ROUTE .STK-MED ONE Stop: 06/20/17 10:16 - Exam Wound/Incisions: Healing Well, Dressing Dry and Intact General: Alert, Oriented HEENT: Pupils Equal, Pupils Reactive, EOMI, Mucous Membr. Moist/[place] Lungs: Normal Respiratory Effort Cardiovascular: Regular Rhythm GI/Abdominal Exam: Soft, Non-Tender, No Distention, No Mass Extremities: Normal Inspection, Normal Range of Motion Skin: Warm, Dry, Intact Neurological: No New Focal Deficit Psy/Mental Status: Alert, Normal Affect, Normal Mood - Problem List & Annotations (1) Biliary colic SNOMED Code(s): 69825153 Code(s): K80.50 - CALCULUS OF BILE DUCT W/O CHOLANGITIS OR CHOLECYST W/O OBST Status: Acute Current Visit: Yes (2) Hypotension SNOMED Code(s): 20178886 Code(s): I95.9 - HYPOTENSION, UNSPECIFIED Status: Acute Current Visit: Yes (3) Acute renal insufficiency SNOMED Code(s): 119766684 Code(s): N28.9 - DISORDER OF KIDNEY AND URETER, UNSPECIFIED Status: Acute Current Visit: Yes - Problem List Review Problem List Initiated/Reviewed/Updated: Yes - My Orders Last 24 Hours: Active Orders 24 hr Category Date Time Status Transfer Patient (Change bed) [ADT] Routine ADT 06/21/17 09:51 Ordered May Shower [RC] ASDIRECTED Care 06/22/17 09:46 Ordered Remove Amaya Catheter [Urinary Catheter Removal] [RC] Care 06/21/17 09:50 Active Per Unit Routine Regular Diet [DIET] Diet 06/21/17 Lunch Active CBC W/O DIFF,HEMOGRAM [HEME] AM Lab 06/23/17 05:11 Ordered CBC W/O DIFF,HEMOGRAM [HEME] AM Lab 06/24/17 05:11 Ordered CMP [COMPREHENSIVE METABOLIC PN,CMP] [CHEM] AM Lab 06/23/17 05:11 Ordered CMP [COMPREHENSIVE METABOLIC PN,CMP] [CHEM] AM Lab 06/24/17 05:11 Ordered MAGNESIUM [CHEM] AM Lab 06/23/17 05:11 Ordered MAGNESIUM [CHEM] AM Lab 06/24/17 05:11 Ordered PHOSPHORUS [CHEM] AM Lab 06/23/17 05:11 Ordered PHOSPHORUS [CHEM] AM Lab 06/24/17 05:11 Ordered Acetaminophen/oxyCODONE [Percocet 325-5 MG] Med 06/21/17 09:12 Active 2 tab PO Q4H PRN Morphine Med 06/21/17 09:08 Active 2 mg IVPUSH Q1H PRN Omeprazole Med 06/21/17 09:51 Active 20 mg PO ACBREAKFAST Phosphorus #1 [Neutra-Phos] Med 06/21/17 10:00 Active 250 mg PO BID Polyethylene Glycol 3350 [MiraLAX] Med 06/21/17 10:00 Active 17 gm PO DAILY buPROPion [Wellbutrin SR] Med 06/21/17 10:00 Active 150 mg PO DAILY May Take Own Home Medications [OM.PC] Routine Oth 06/21/17 10:04 Ordered Medication Orders Acetaminophen (Tylenol) 650 mg PO Q6H PRN PRN Reason: Pain (mild 1-3) Bupropion HCl (Wellbutrin Sr) 150 mg PO DAILY [facility] Last Admin: 06/22/17 09:44 Dose: 150 mg Admin: 06/21/17 10:24 Dose: 150 mg Cyclobenzaprine HCl (Flexeril) 5 mg PO TID [facility] Last Admin: 06/22/17 06:47 Dose: Not Given Admin: 06/21/17 22:46 Dose: 5 mg Admin: 06/21/17 15:25 Dose: 5 mg Admin: 06/21/17 05:15 Dose: 5 mg Admin: 06/20/17 22:06 Dose: 5 mg Diphenhydramine HCl (Benadryl) 25 mg IVPUSH Q4H PRN PRN Reason: Itching Last Admin: 06/21/17 05:48 Dose: 25 mg Piperacillin Sod/Tazobactam (Sod 3.375 gm/ Sodium Chloride) 50 mls @ 100 mls/ hr IV Q6H [facility] Last Admin: 06/22/17 04:24 Dose: 100 mls/hr Infusion: 06/21/17 23:18 Dose: 100 mls/hr Admin: 06/21/17 22:48 Dose: 100 mls/hr Infusion: 06/21/17 17:04 Dose: 100 mls/hr Admin: 06/21/17 16:34 Dose: 100 mls/hr Infusion: 06/21/17 10:55 Dose: 100 mls/hr Admin: 06/21/17 10:25 Dose: 100 mls/hr Infusion: 06/21/17 05:09 Dose: 100 mls/hr Admin: 06/21/17 04:39 Dose: 100 mls/hr Infusion: 06/20/17 22:36 Dose: 100 mls/hr Admin: 06/20/17 22:06 Dose: 100 mls/hr Infusion: 06/20/17 18:16 Dose: 100 mls/hr Admin: 06/20/17 17:46 Dose: 100 mls/hr Morphine Sulfate (Morphine) 2 mg IVPUSH Q1H PRN PRN Reason: Abdominal Pain Last Admin: 06/22/17 09:39 Dose: 2 mg Admin: 06/21/17 23:30 Dose: 2 mg Admin: 06/21/17 09:20 Dose: 2 mg Omeprazole (Omeprazole) 20 mg PO ACBREAKFAST [facility] Last Admin: 06/22/17 06:42 Dose: 20 mg Ondansetron HCl (Zofran) 4 mg IVPUSH Q6H PRN PRN Reason: Nausea/Vomiting Last Admin: 06/22/17 09:38 Dose: 4 mg Admin: 06/21/17 23:28 Dose: 4 mg Admin: 06/21/17 16:41 Dose: 4 mg Oxycodone/Acetaminophen (Percocet 325-5 Mg) 2 tab PO Q4H PRN PRN Reason: Abdominal Pain Last Admin: 06/21/17 20:30 Dose: 2 tab Admin: 06/21/17 16:34 Dose: 2 tab Admin: 06/21/17 09:30 Dose: 2 tab Polyethylene Glycol (Miralax) 17 gm PO DAILY [facility] Last Admin: 06/22/17 09:44 Dose: 17 gm Admin: 06/21/17 10:24 Dose: 17 gm Promethazine HCl (Phenergan) 25 mg IM Q6H PRN PRN Reason: Nausea Sodium Phosphate (Neutra-Phos) 250 mg PO BID [facility] Last Admin: 06/22/17 09:44 Dose: 250 mg Admin: 06/21/17 20:30 Dose: 250 mg Admin: 06/21/17 10:24 Dose: 250 mg - Plan Plan (Free Text/Narrative):: -Pain: MS IV 2mg q 1 hr prn severe pain. Flexeril and prn percocet. OnQ pump. -VSS. UOP adequate. Hold IVF. -Abdominal drain removed. Marylu intact over incisions. No evidence of infection or breakdown. -Continue IV zosyn since WBC elevated. This may be due to stress leukocytosis.
[2017-06-22] MEDS: Acetaminophen/oxyCODONE 325-5 MG Tab PO PRN (16:37)
[2017-06-23] MEDS: Acetaminophen/oxyCODONE 325-5 MG Tab PO PRN ×2 (00:21→14:52)
[2017-06-23] MEDS: Piperacillin/Tazobactam 3.375 GM in Sodium Chloride 0.9% 50 ML IV SCH (04:36)
[2017-06-23 05:51] LABS: CHLORIDE,CL 106 mmol/L (98-110); SODIUM,NA 141 mmol/L (136-146)
[2017-06-23] MEDS: Omeprazole 20 MG Cap.CR PO SCH (06:31)
[2017-06-23] MEDS: Cyclobenzaprine 5 MG Tab PO SCH ×2 (06:31→13:32)
[2017-06-23] MEDS ORDERED: Ciprofloxacin in D5W 400 MG in Premix Bag 1 BAG IV SCH ×2 (08:00)
[2017-06-23] MEDS: buPROPion 150 MG Tab.SR PO SCH (08:32)
[2017-06-23] MEDS: Phosphorus #1 250 MG Tab PO SCH (08:33)
[2017-06-23] MEDS: Polyethylene Glycol 3350 Powder 17 GM Packet PO SCH (08:34)
[2017-06-23] MEDS ORDERED: Multivitamin Tab PO SCH (09:00)
[2017-06-23] MEDS ORDERED: metroNIDAZOLE/Normal Saline 250 MG in Premix Bag 1 BAG IV SCH (09:00)
[2017-06-23] MEDS ORDERED: Docusate Sodium/Sennosides Tab PO SCH ×2 (09:00→21:00)
--- NOTE | 2017-06-23 10:00 | PCM.SURGPN ---
- General Info Date of Service: 06/23/17 Date of Surgery/Procedure: 06/20/17 POD#: 3 Functional Status: Reports: Pain Controlled, Tolerating Diet, Ambulating, Urinating, Other (Patient feels very tired. ) - Review of Systems General: Reports: Fatigue. Denies: Fever, Malaise, Chills Pulmonary: Reports: No Symptoms Cardiovascular: Reports: No Symptoms Gastrointestinal: Reports: Constipation, Decreased Appetite. Denies: Abdominal Pain, Diarrhea, Flatus, Nausea, Vomiting - Patient Data Vitals - Most Recent: Last Vital Signs Temp 36.5 C 06/23/17 07:35 Pulse 79 06/23/17 07:35 Resp 16 06/23/17 07:35 BP 118/76 06/23/17 07:35 Pulse Ox 95 06/23/17 07:35 Weight - Most Recent: 106.4 kg I&O - Last 24 Hours: Intake & Output 06/22/17 06/23/17 06/23/17 22:59 06:59 14:59 Intake Total 300 650 250 Output Total 1300 900 Balance -1000 -250 250 Lab Results Last 24 Hrs: Laboratory Results - last 24 hr 06/23/17 06/23/17 Range/Units 04:50 04:50 WBC 12.31 H (4.0-11.0) K/uL RBC 3.70 L (4.30-5.90) M/uL Hgb 11.5 L (12.0-16.0) g/dL Hct 35.6 L (36.0-46.0) % MCV 96.2 (80.0-98.0) fL MCH 31.1 (27.0-32.0) pg MCHC 32.3 (31.0-37.0) g/dL RDW Std Deviation 48.8 (28.0-62.0) fl RDW Coeff of Ana 14 (11.0-15.0) % Plt Count 200 (150-400) K/uL MPV 11.90 (7.40-12.00) fL Nucleated RBC % 0.0 /100WBC Nucleated RBCs # 0 K/uL Sodium 141 (136-146) mmol/L Potassium 4.6 (3.5-5.1) mmol/L Chloride 106 (98-110) mmol/L Carbon Dioxide 27 (21-31) mmol/L BUN 5 L (6.0-23.0) mg/dL Creatinine 1.0 (0.6-1.5) mg/dL Est Cr Clr Drug Dosing 85.44 mL/min Estimated GFR (MDRD) > 60.0 ml/min Glucose 83 (60-110) mg/dL Calcium 8.4 L (8.8-10.8) mg/dL Phosphorus 3.1 (2.4-4.7) mg/dL Magnesium 1.5 (1.5-2.3) mEq/L Total Bilirubin 0.6 (0.1-1.5) mg/dL AST 45 H (5-40) IU/L ALT 98 H (8-54) IU/L Alkaline Phosphatase 88 (40-150) Total Protein 5.3 L (6.0-8.0) g/dL Albumin 3.2 L (3.5-5.0) g/dL Globulin 2.1 (2.0-3.5) g/dL Albumin/Globulin Ratio 1.5 (1.3-2.8) Med Orders - Current: Current Medications Acetaminophen (Tylenol) 650 mg PO Q6H PRN PRN Reason: Pain (mild 1-3) Bupropion HCl (Wellbutrin Sr) 150 mg PO DAILY [facility] Last Admin: 06/23/17 08:32 Dose: 150 mg Cyclobenzaprine HCl (Flexeril) 5 mg PO TID [facility] Last Admin: 06/23/17 06:31 Dose: 5 mg Diphenhydramine HCl (Benadryl) 25 mg IVPUSH Q4H PRN PRN Reason: Itching Last Admin: 06/21/17 05:48 Dose: 25 mg Ciprofloxacin/Dextrose 400 mg/ (Premix) 200 mls @ 200 mls/hr IV Q12H [facility] Last Admin: 06/23/17 08:22 Dose: 200 mls/hr Metronidazole 250 mg/ Premix 50 mls @ 50 mls/hr IV Q6H [facility] Last Admin: 06/23/17 09:47 Dose: 50 mls/hr Morphine Sulfate (Morphine) 2 mg IVPUSH Q1H PRN PRN Reason: Abdominal Pain Last Admin: 06/22/17 09:39 Dose: 2 mg Multivitamins/Minerals/Vitamin C (Tab-A-Monse) 1 tab PO DAILY [facility] Last Admin: 06/23/17 08:32 Dose: 1 tab Omeprazole (Omeprazole) 20 mg PO ACBREAKFAST [facility] Last Admin: 06/23/17 06:31 Dose: 20 mg Ondansetron HCl (Zofran) 4 mg IVPUSH Q6H PRN PRN Reason: Nausea/Vomiting Last Admin: 06/22/17 16:37 Dose: 4 mg Oxycodone/Acetaminophen (Percocet 325-5 Mg) 2 tab PO Q4H PRN PRN Reason: Abdominal Pain Last Admin: 06/23/17 00:21 Dose: 2 tab Polyethylene Glycol (Miralax) 17 gm PO DAILY [facility] Last Admin: 06/23/17 08:34 Dose: 17 gm Promethazine HCl (Phenergan) 25 mg IM Q6H PRN PRN Reason: Nausea Senna/Docusate Sodium (Senna Plus) 2 tab PO DAILY [facility] Sodium Phosphate (Neutra-Phos) 250 mg PO BID [facility] Last Admin: 06/23/17 08:33 Dose: 250 mg Discontinued Medications Bupivacaine HCl (Marcaine 0.5%) Confirm Administered Dose 30 ml .ROUTE .STK-MED ONE Stop: 06/20/17 12:09 Bupivacaine HCl (Marcaine 0.5%) Confirm Administered Dose 90 ml .ROUTE .STK-MED ONE Stop: 06/20/17 14:36 Bupivacaine HCl (Sensorcaine-Mpf 0.5%) Confirm Administered Dose 10 ml .ROUTE .STK-MED ONE Stop: 06/20/17 14:36 Diphenhydramine HCl (Benadryl) Confirm Administered Dose 50 mg .ROUTE .STK-MED ONE Stop: 06/20/17 10:16 Ephedrine Sulfate (Ephedrine Sulfate) Confirm Administered Dose 50 mg .ROUTE .STK-MED ONE Stop: 06/20/17 14:36 Fentanyl (Sublimaze) Confirm Administered Dose 100 mcg .ROUTE .STK-MED ONE Stop: 06/20/17 10:14 Fentanyl (Sublimaze) 50 mcg IVPUSH Q5M PRN PRN Reason: Pain (severe 7-10) Stop: 06/20/17 16:00 Glycopyrrolate (Robinul) Confirm Administered Dose 0.4 mg .ROUTE .STK-MED ONE Stop: 06/20/17 10:16 Glycopyrrolate (Robinul) Confirm Administered Dose 0.2 mg .ROUTE .STK-MED ONE Stop: 06/20/17 15:23 Hydromorphone HCl (Dilaudid) Confirm Administered Dose 2 mg .ROUTE .K-MED ONE Stop: 06/20/17 10:14 Hydromorphone HCl (Dilaudid [employer] 6 Mg In Ns 30 Ml) 0 mg IV ASDIRECTED PRN; Protocol PRN Reason: Abdominal Pain Last Admin: 06/21/17 03:28 Dose: 6 mg Hydromorphone HCl (Dilaudid) 1 mg IVPUSH Q1H PRN PRN Reason: Pain Last Admin: 06/20/17 18:20 Dose: 1 mg Sodium Chloride (Normal Saline) 1,000 mls @ 999 mls/hr IV STAT ONE Stop: 06/19/17 00:19 Last Admin: 06/18/17 23:32 Dose: 999 mls/hr Sodium Chloride (Normal Saline) 1,000 mls @ 150 mls/hr IV STAT [facility] Last Admin: 06/19/17 11:55 Dose: 150 mls/hr Ciprofloxacin/Dextrose 400 mg/ (Premix) 200 mls @ 200 mls/hr IV Q12H [facility] Last Admin: 06/21/17 08:36 Dose: Not Given Metronidazole 500 mg/ Premix 100 mls @ 100 mls/hr IV Q8H [facility] Last Admin: 06/20/17 11:44 Dose: 100 mls/hr Sodium Chloride (Normal Saline) 1,000 mls @ 150 mls/hr IV ASDIRECTED [facility] Last Admin: 06/20/17 08:23 Dose: 150 mls/hr Lactated Ringer's (Ringers, Lactated) 1,000 mls @ 1,000 mls/hr IV .BOLUS [facility] Last Admin: 06/19/17 13:09 Dose: 1,000 mls/hr Lactated Ringer's (Ringers, Lactated) 1,000 mls @ 999 mls/hr IV STAT [facility] Sodium Chloride (Normal Saline) 1,000 mls @ 125 mls/hr IV ASDIRECTED [facility] Stop: 06/21/17 00:34 Last Admin: 06/20/17 17:18 Dose: 125 mls/hr Sodium Chloride (Normal Saline) 1,000 mls @ 1,000 mls/hr IV .Bolus ONE Stop: 06/20/17 17:04 Last Admin: 06/20/17 17:19 Dose: Not Given Piperacillin Sod/Tazobactam (Sod 3.375 gm/ Sodium Chloride) 50 mls @ 100 mls/ hr IV Q6H [facility] Last Admin: 06/23/17 04:36 Dose: 100 mls/hr Magnesium Sulfate 2 gm/ Premix 50 mls @ 25 mls/hr IV ONETIME ONE Stop: 06/20/17 20:01 Last Admin: 06/20/17 18:23 Dose: 25 mls/hr Sodium Chloride (Normal Saline) 1,000 mls @ 999 mls/hr IV .BOLUS ONE Stop: 06/21/17 01:17 Last Admin: 06/21/17 00:20 Dose: 999 mls/hr Sodium Chloride (Normal Saline) 1,000 mls @ 150 mls/hr IV ASDIRECTED [facility] Last Admin: 06/21/17 08:00 Dose: 150 mls/hr Magnesium Sulfate 2 gm/ Premix 50 mls @ 50 mls/hr IV ONETIME ONE Stop: 06/21/17 08:44 Last Admin: 06/21/17 07:58 Dose: 50 mls/hr Magnesium Sulfate 4 gm/ Premix 100 mls @ 50 mls/hr IV ONETIME ONE Stop: 06/21/17 11:47 Last Admin: 06/21/17 10:24 Dose: 50 mls/hr Sodium Chloride (Normal Saline) 1,000 mls @ 150 mls/hr IV ASDIRECTED [facility] Stop: 06/21/17 09:51 Ketamine HCl (Ketalar) Confirm Administered Dose 500 mg .ROUTE .STK-MED ONE Stop: 06/20/17 14:23 Ketorolac Tromethamine (Toradol) 30 mg IVPUSH ONETIME ONE Stop: 06/18/17 23:20 Last Admin: 06/18/17 23:33 Dose: 30 mg Lidocaine HCl (Xylocaine-Mpf 1%) Confirm Administered Dose 5 ml .ROUTE .STK-MED ONE Stop: 06/20/17 10:16 Metoclopramide HCl (Reglan) 5 mg IV Q6H PRN PRN Reason: Nausea Midazolam HCl (Versed 1 Mg/Ml) Confirm Administered Dose 4 mg .ROUTE .STK-MED ONE Stop: 06/20/17 10:17 Morphine Sulfate (Morphine) 2 mg IVPUSH Q3H PRN PRN Reason: Pain Last Admin: 06/19/17 16:19 Dose: 2 mg Neostigmine Methylsulfate (Neostigmine) Confirm Administered Dose 5 mg .ROUTE .STK-MED ONE Stop: 06/20/17 10:16 Non-Formulary Medication (Barbara Ah Absorbable Hemostat) Confirm Administered Dose 1 each .ROUTE .STK-MED ONE Stop: 06/20/17 15:05 Octyl Cyanoacrylate (Dermabond Advance) Confirm Administered Dose 1 applic .ROUTE .STK-MED ONE Stop: 06/20/17 12:09 Omeprazole (Omeprazole) 20 mg PO ACBREAKFAST [facility] Last Admin: 06/21/17 06:30 Dose: 20 mg Ondansetron HCl (Zofran) 8 mg IVPUSH ONETIME ONE Stop: 06/18/17 23:20 Last Admin: 06/18/17 23:32 Dose: 8 mg Ondansetron HCl (Zofran) 4 mg IVPUSH Q3H PRN PRN Reason: Nausea/Vomiting Ondansetron HCl (Zofran) Confirm Administered Dose 4 mg .ROUTE .STK-MED ONE Stop: 06/20/17 10:16 Oxycodone/Acetaminophen (Percocet 325-5 Mg) 2 tab PO Q4H PRN PRN Reason: Pain (moderate 4-6) Oxycodone/Acetaminophen (Percocet 325-10 Mg) 1 tab PO Q4H PRN PRN Reason: Abdominal Pain Phenylephrine HCl (Phenylephrine In Ns 100 Mcg/Ml) Confirm Administered Dose 1 mg .ROUTE .STK-MED ONE Stop: 06/20/17 15:40 Propofol (Diprivan 20 Ml) Confirm Administered Dose 200 mg .ROUTE .STK-MED ONE Stop: 06/20/17 10:14 Rocuronium [place] (Zemuron) Confirm Administered Dose 100 mg .ROUTE .STK-MED ONE Stop: 06/20/17 10:16 Senna/Docusate Sodium (Senokot-S) 1 each PO BEDTIME [facility] Senna/Docusate Sodium (Senokot-S) 2 each PO DAILY [facility] - Exam Wound/Incisions: Healing Well General: Alert, Oriented HEENT: Pupils Equal, Pupils Reactive Lungs: Normal Respiratory Effort Cardiovascular: Regular Rhythm GI/Abdominal Exam: Soft, Non-Tender, No Distention, No Mass - Problem List & Annotations (1) Biliary colic SNOMED Code(s): 73021103 Code(s): K80.50 - CALCULUS OF BILE DUCT W/O CHOLANGITIS OR CHOLECYST W/O OBST Status: Acute Current Visit: Yes (2) Hypotension SNOMED Code(s): 66030361 Code(s): I95.9 - HYPOTENSION, UNSPECIFIED Status: Acute Current Visit: Yes (3) Acute renal insufficiency SNOMED Code(s): 397361391 Code(s): N28.9 - DISORDER OF KIDNEY AND URETER, UNSPECIFIED Status: Acute Current Visit: Yes - Problem List Review Problem List Initiated/Reviewed/Updated: Yes - My Orders Last 24 Hours: Active Orders 24 hr Category Date Time Status May Shower [RC] ASDIRECTED Care 06/22/17 09:46 Active CBC W/O DIFF,HEMOGRAM [HEME] AM Lab 06/24/17 05:11 Ordered CBC WITH AUTO DIFF [HEME] Routine Lab 06/23/17 14:00 Ordered Ciprofloxacin in D5W [Cipro in D5W 400 MG/200 ML] 400 Med 06/23/17 08:00 Active mg Premix Bag 1 bag IV Q12H Docusate Sodium/Sennosides [Senna Plus] Med 06/24/17 09:00 Active 2 tab PO DAILY Multivitamins [Tab-A-Monse] Med 06/23/17 09:00 Active 1 tab PO DAILY metroNIDAZOLE/Normal Saline [Flagyl 500 MG in NS 100 ML Med 06/23/17 09:00 Active ] 250 mg Premix Bag 1 bag IV Q6H Medication Orders Acetaminophen (Tylenol) 650 mg PO Q6H PRN PRN Reason: Pain (mild 1-3) Bupropion HCl (Wellbutrin Sr) 150 mg PO DAILY [facility] Last Admin: 06/23/17 08:32 Dose: 150 mg Admin: 06/22/17 09:44 Dose: 150 mg Admin: 06/21/17 10:24 Dose: 150 mg Cyclobenzaprine HCl (Flexeril) 5 mg PO TID [facility] Last Admin: 06/23/17 06:31 Dose: 5 mg Admin: 06/22/17 21:10 Dose: 5 mg Admin: 06/22/17 13:15 Dose: 5 mg Admin: 06/22/17 06:47 Dose: Not Given Admin: 06/21/17 22:46 Dose: 5 mg Admin: 06/21/17 15:25 Dose: 5 mg Admin: 06/21/17 05:15 Dose: 5 mg Admin: 06/20/17 22:06 Dose: 5 mg Diphenhydramine HCl (Benadryl) 25 mg IVPUSH Q4H PRN PRN Reason: Itching Last Admin: 06/21/17 05:48 Dose: 25 mg Ciprofloxacin/Dextrose 400 mg/ (Premix) 200 mls @ 200 mls/hr IV Q12H [facility] Last Admin: 06/23/17 08:22 Dose: 200 mls/hr Metronidazole 250 mg/ Premix 50 mls @ 50 mls/hr IV Q6H [facility] Last Admin: 06/23/17 09:47 Dose: 50 mls/hr Morphine Sulfate (Morphine) 2 mg IVPUSH Q1H PRN PRN Reason: Abdominal Pain Last Admin: 06/22/17 09:39 Dose: 2 mg Admin: 06/21/17 23:30 Dose: 2 mg Admin: 06/21/17 09:20 Dose: 2 mg Multivitamins/Minerals/Vitamin C (Tab-A-Monse) 1 tab PO DAILY [facility] Last Admin: 06/23/17 08:32 Dose: 1 tab Omeprazole (Omeprazole) 20 mg PO ACBREAKFAST [facility] Last Admin: 06/23/17 06:31 Dose: 20 mg Admin: 06/22/17 06:42 Dose: 20 mg Ondansetron HCl (Zofran) 4 mg IVPUSH Q6H PRN PRN Reason: Nausea/Vomiting Last Admin: 06/22/17 16:37 Dose: 4 mg Admin: 06/22/17 09:38 Dose: 4 mg Admin: 06/21/17 23:28 Dose: 4 mg Admin: 06/21/17 16:41 Dose: 4 mg Oxycodone/Acetaminophen (Percocet 325-5 Mg) 2 tab PO Q4H PRN PRN Reason: Abdominal Pain Last Admin: 06/23/17 00:21 Dose: 2 tab Admin: 06/22/17 16:37 Dose: 2 tab Admin: 06/21/17 20:30 Dose: 2 tab Admin: 06/21/17 16:34 Dose: 2 tab Admin: 06/21/17 09:30 Dose: 2 tab Polyethylene Glycol (Miralax) 17 gm PO DAILY [facility] Last Admin: 06/23/17 08:34 Dose: 17 gm Admin: 06/22/17 09:44 Dose: 17 gm Admin: 06/21/17 10:24 Dose: 17 gm Promethazine HCl (Phenergan) 25 mg IM Q6H PRN PRN Reason: Nausea Senna/Docusate Sodium (Senna Plus) 2 tab PO DAILY [facility] Sodium Phosphate (Neutra-Phos) 250 mg PO BID [facility] Last Admin: 06/23/17 08:33 Dose: 250 mg Admin: 06/22/17 21:10 Dose: 250 mg Admin: 06/22/17 09:44 Dose: 250 mg Admin: 06/21/17 20:30 Dose: 250 mg Admin: 06/21/17 10:24 Dose: 250 mg - Plan Plan (Free Text/Narrative):: Patient is a mild leukocytosis but no evidence of infection. I'll switch her from IV Zosyn to IV Cipro and Flagyl. I will recheck her white count this afternoon. If it is the same I'll switch her to oral Cipro and Flagyl. I started her on a bowel regiment since she has not yet passed gas. I encouraged patient to be out of bed and walking as much as possible today. On-Q pump was empty so I removed it.
[2017-06-23] MEDS ORDERED: Cyclobenzaprine 5 MG Tab PO PRN (14:32)
[2017-06-23] MEDS ORDERED: Enoxaparin 40 MG/0.4 ML Syringe SUBCUT SCH (14:45)
[2017-06-23] MEDS: Ondansetron 4 MG/2 ML SDV IVPUSH PRN (14:51)
--- NOTE | 2017-06-23 14:57 | PCM.DCSUM1 ---
Discharge Summary - Hospital Course Free Text/Narrative:: Patient is a 41-year-old female who presented with 4-5 days of right upper quadrant pain nausea and vomiting. On presentation to the ER she was hypotensive and given IV fluid resuscitation. Her initial labs revealed acute renal failure with an elevated BUN/creatinine. A right upper quadrant ultrasound revealed cholelithiasis with a stone in the neck of the gallbladder as well as trace free fluid around the gallbladder wall and mild thickening suggestive of acute cholecystitis. She was admitted to the medicine service. Her blood pressure remained soft and she was given several fluid boluses with improvement in her blood pressure. She started on IV Cipro and Flagyl. On physical exam the next morning her pain had improved with IV morphine but she continued to have a positive Dee sign. MRCP revealed no evidence of choledocholithiasis or acute cholecystitis. Her AST and ALT were mildly elevated. Her BUN/creatinine improved with fluid resuscitation. On her second hospital day her BUN/creatinine had returned to normal and her blood pressure was stable. Decision was made to proceed with a laparoscopic possible open cholecystectomy. Intraoperatively she was found to have severe cholecystitis with a short cystic duct. Her laparoscopic case was converted to open and she was admitted to the ICU afterwards due to low urine output intraoperatively and greater than anticipated blood loss. She did well postoperatively and responded well to fluid boluses with an increase in her urine output. Her BUN/creatinine stayed stable. She is transferred out of the ICU and onto the floor. Postoperative day 2 she was noted to have a mildly elevated white count. She is placed on IV Zosyn postoperatively but the next day her white count had elevated again. She was switched to IV Cipro and Flagyl again and her white count came down. She was transitioned to oral antibiotics. her pain was well managed on oral Percocet and Flexeril. She is tolerating a regular diet. Her drain was removed on postop day 2 due to low output. Physical exam her abdomen is soft flat nontender. She started on a bowel regiment and had two BM this morning. She was slightly nauseated but this improved with zofran. She was cleared to d/c home. - Discharge Data Discharge Date: 06/23/17 Discharge Disposition: Home, Self-Care 01 Condition: Fair - Discharge Diagnosis/Problem(s) (1) Biliary colic SNOMED Code(s): 91247829 ICD Code: K80.50 - CALCULUS OF BILE DUCT W/O CHOLANGITIS OR CHOLECYST W/O OBST Status: Acute Current Visit: Yes (2) Hypotension SNOMED Code(s): 41422516 ICD Code: I95.9 - HYPOTENSION, UNSPECIFIED Status: Acute Current Visit: Yes (3) Acute renal insufficiency SNOMED Code(s): 706996465 ICD Code: N28.9 - DISORDER OF KIDNEY AND URETER, UNSPECIFIED Status: Acute Current Visit: Yes - Patient Summary/Data Operative Procedure(s) Performed: Laparoscopic converted to open cholecystectomy - Patient Instructions Diet: Regular Diet as Tolerated Activity: No Lifting Over 20 Pounds (for six weeks), Rest and Relax Today Driving: Do Not Drive (for one week or while on narcotics ) Showering/Bathing: May Shower, No Tub Bathing/Swimming (for two weeks after surgery) Notify Provider of: Fever, Increased Pain, Swelling and Redness, Drainage, Nausea and/or Vomiting Other/Special Instructions: Hold BP meds until I see you in clinic. - Discharge Plan Prescriptions/Med Rec: Ciprofloxacin [IJD: Ciprofloxacin HCl] 500 mg PO BID #11 tablet metroNIDAZOLE 250 mg PO Q6H #22 tablet Polyethylene Glycol 3350 [MiraLAX] 17 gm PO DAILY #7 packet Home Medications: Home Meds Estradiol 1 mg PO DAILY 06/18/17 [History] LORazepam 0.5 mg PO Q6HR PRN MDD anxiety 06/18/17 [History] Lisinopril/Hydrochlorothiazide [Lisinopril-Hctz 20-25 mg Tab] 1 each PO DAILY [History] buPROPion [Wellbutrin SR] 150 mg PO DAILY 06/18/17 [History] Ciprofloxacin [IJD: Ciprofloxacin HCl] 500 mg PO BID #11 tablet 06/23/17 [Rx] Polyethylene Glycol 3350 [MiraLAX] 17 gm PO DAILY #7 packet 06/23/17 [Rx] metroNIDAZOLE 250 mg PO Q6H #22 tablet 06/23/17 [Rx] Referrals: Alison Hazel MD [Physician] - 06/29/17 2:30 pm - Discharge Summary/Plan Comment DC Time >30 min.: No - General Info Date of Service: 06/23/17 Functional Status: Reports: Pain Controlled, Tolerating Diet, Ambulating, Urinating - Review of Systems General: Reports: No Symptoms Pulmonary: Reports: No Symptoms Cardiovascular: Reports: No Symptoms Gastrointestinal: Reports: No Symptoms - Patient Data Vitals - Most Recent: Last Vital Signs Temp 36.3 C 06/23/17 11:05 Pulse 84 06/23/17 11:05 Resp 16 06/23/17 11:05 BP 117/77 06/23/17 11:05 Pulse Ox 95 06/23/17 11:05 Weight - Most Recent: 106.4 kg I&O - Last 24 hours: Intake & Output 06/22/17 06/23/17 06/23/17 22:59 06:59 14:59 Intake Total 300 650 250 Output Total 1300 900 Balance -1000 -250 250 Lab Results - Last 24 hrs: Laboratory Results - last 24 hr 06/23/17 06/23/17 06/23/17 Range/Units 04:50 04:50 13:56 WBC 12.31 H 11.55 H (4.0-11.0) K/uL RBC 3.70 L 3.62 L (4.30-5.90) M/uL Hgb 11.5 L 11.4 L (12.0-16.0) g/dL Hct 35.6 L 34.7 L (36.0-46.0) % MCV 96.2 95.9 (80.0-98.0) fL MCH 31.1 31.5 (27.0-32.0) pg MCHC 32.3 32.9 (31.0-37.0) g/dL RDW Std Deviation 48.8 48.9 (28.0-62.0) fl RDW Coeff of Ana 14 14 (11.0-15.0) % Plt Count 200 210 (150-400) K/uL MPV 11.90 11.70 (7.40-12.00) fL Neut % (Auto) 79.0 (48.0-80.0) % Lymph % (Auto) 12.0 L (16.0-40.0) % Mcdonough % (Auto) 7.5 (0.0-15.0) % Eos % (Auto) 1.4 (0.0-7.0) % Baso % (Auto) 0.1 (0.0-1.5) % Neut # (Auto) 9.1 H (1.4-5.7) K/uL Lymph # (Auto) 1.4 (0.6-2.4) K/uL Mcdonough # (Auto) 0.9 H (0.0-0.8) K/uL Eos # (Auto) 0.2 (0.0-0.7) K/uL Baso # (Auto) 0.0 (0.0-0.1) K/uL Nucleated RBC % 0.0 0.0 /100WBC Nucleated RBCs # 0 0 K/uL Sodium 141 (136-146) mmol/L Potassium 4.6 (3.5-5.1) mmol/L Chloride 106 (98-110) mmol/L Carbon Dioxide 27 (21-31) mmol/L BUN 5 L (6.0-23.0) mg/dL Creatinine 1.0 (0.6-1.5) mg/dL Est Cr Clr Drug Dosing 85.44 mL/min Estimated GFR (MDRD) > 60.0 ml/min Glucose 83 (60-110) mg/dL Calcium 8.4 L (8.8-10.8) mg/dL Phosphorus 3.1 (2.4-4.7) mg/dL Magnesium 1.5 (1.5-2.3) mEq/L Total Bilirubin 0.6 (0.1-1.5) mg/dL AST 45 H (5-40) IU/L ALT 98 H (8-54) IU/L Alkaline Phosphatase 88 (40-150) Total Protein 5.3 L (6.0-8.0) g/dL Albumin 3.2 L (3.5-5.0) g/dL Globulin 2.1 (2.0-3.5) g/dL Albumin/Globulin Ratio 1.5 (1.3-2.8) Med Orders - Current: Current Medications Acetaminophen (Tylenol) 650 mg PO Q6H PRN PRN Reason: Pain (mild 1-3) Bupropion HCl (Wellbutrin Sr) 150 mg PO DAILY [facility] Last Admin: 06/23/17 08:32 Dose: 150 mg Ciprofloxacin (Ciprofloxacin Hcl) 500 mg PO BID [facility] Cyclobenzaprine HCl (Flexeril) 5 mg PO TID PRN PRN Reason: Spasms Diphenhydramine HCl (Benadryl) 25 mg IVPUSH Q4H PRN PRN Reason: Itching Last Admin: 06/21/17 05:48 Dose: 25 mg Enoxaparin Sodium (Lovenox) 40 mg SUBCUT Q24H [facility] Metronidazole (Metronidazole) 250 mg PO Q6H [facility] Morphine Sulfate (Morphine) 2 mg IVPUSH Q1H PRN PRN Reason: Abdominal Pain Last Admin: 06/22/17 09:39 Dose: 2 mg Multivitamins/Minerals/Vitamin C (Tab-A-Monse) 1 tab PO DAILY [facility] Last Admin: 06/23/17 08:32 Dose: 1 tab Omeprazole (Omeprazole) 20 mg PO ACBREAKFAST [facility] Last Admin: 06/23/17 06:31 Dose: 20 mg Ondansetron HCl (Zofran) 4 mg IVPUSH Q6H PRN PRN Reason: Nausea/Vomiting Last Admin: 06/23/17 14:51 Dose: 4 mg Oxycodone/Acetaminophen (Percocet 325-5 Mg) 2 tab PO Q4H PRN PRN Reason: Abdominal Pain Last Admin: 06/23/17 14:52 Dose: 2 tab Polyethylene Glycol (Miralax) 17 gm PO DAILY [facility] Last Admin: 06/23/17 08:34 Dose: 17 gm Promethazine HCl (Phenergan) 25 mg IM Q6H PRN PRN Reason: Nausea Senna/Docusate Sodium (Senna Plus) 2 tab PO DAILY [facility] Sodium Phosphate (Neutra-Phos) 250 mg PO BID [facility] Last Admin: 06/23/17 08:33 Dose: 250 mg Discontinued Medications Bupivacaine HCl (Marcaine 0.5%) Confirm Administered Dose 30 ml .ROUTE .STK-MED ONE Stop: 06/20/17 12:09 Bupivacaine HCl (Marcaine 0.5%) Confirm Administered Dose 90 ml .ROUTE .STK-MED ONE Stop: 06/20/17 14:36 Bupivacaine HCl (Sensorcaine-Mpf 0.5%) Confirm Administered Dose 10 ml .ROUTE .STK-MED ONE Stop: 06/20/17 14:36 Cyclobenzaprine HCl (Flexeril) 5 mg PO TID [facility] Last Admin: 06/23/17 13:32 Dose: Not Given Diphenhydramine HCl (Benadryl) Confirm Administered Dose 50 mg .ROUTE .STK-MED ONE Stop: 06/20/17 10:16 Ephedrine Sulfate (Ephedrine Sulfate) Confirm Administered Dose 50 mg .ROUTE .RUST-MED ONE Stop: 06/20/17 14:36 Fentanyl (Sublimaze) Confirm Administered Dose 100 mcg .ROUTE .K-MED ONE Stop: 06/20/17 10:14 Fentanyl (Sublimaze) 50 mcg IVPUSH Q5M PRN PRN Reason: Pain (severe 7-10) Stop: 06/20/17 16:00 Glycopyrrolate (Robinul) Confirm Administered Dose 0.4 mg .ROUTE .STK-MED ONE Stop: 06/20/17 10:16 Glycopyrrolate (Robinul) Confirm Administered Dose 0.2 mg .ROUTE .RUST-MED ONE Stop: 06/20/17 15:23 Hydromorphone HCl (Dilaudid) Confirm Administered Dose 2 mg .ROUTE .K-MED ONE Stop: 06/20/17 10:14 Hydromorphone HCl (Dilaudid Laboratory Phlebotomist 6 Mg In Ns 30 Ml) 0 mg IV ASDIRECTED PRN; Protocol PRN Reason: Abdominal Pain Last Admin: 06/21/17 03:28 Dose: 6 mg Hydromorphone HCl (Dilaudid) 1 mg IVPUSH Q1H PRN PRN Reason: Pain Last Admin: 06/20/17 18:20 Dose: 1 mg Sodium Chloride (Normal Saline) 1,000 mls @ 999 mls/hr IV STAT ONE Stop: 06/19/17 00:19 Last Admin: 06/18/17 23:32 Dose: 999 mls/hr Sodium Chloride (Normal Saline) 1,000 mls @ 150 mls/hr IV STAT [facility] Last Admin: 06/19/17 11:55 Dose: 150 mls/hr Ciprofloxacin/Dextrose 400 mg/ (Premix) 200 mls @ 200 mls/hr IV Q12H [facility] Last Admin: 06/21/17 08:36 Dose: Not Given Metronidazole 500 mg/ Premix 100 mls @ 100 mls/hr IV Q8H [facility] Last Admin: 06/20/17 11:44 Dose: 100 mls/hr Sodium Chloride (Normal Saline) 1,000 mls @ 150 mls/hr IV ASDIRECTED [facility] Last Admin: 06/20/17 08:23 Dose: 150 mls/hr Lactated Ringer's (Ringers, Lactated) 1,000 mls @ 1,000 mls/hr IV .BOLUS [facility] Last Admin: 06/19/17 13:09 Dose: 1,000 mls/hr Lactated Ringer's (Ringers, Lactated) 1,000 mls @ 999 mls/hr IV STAT [facility] Sodium Chloride (Normal Saline) 1,000 mls @ 125 mls/hr IV ASDIRECTED [facility] Stop: 06/21/17 00:34 Last Admin: 06/20/17 17:18 Dose: 125 mls/hr Sodium Chloride (Normal Saline) 1,000 mls @ 1,000 mls/hr IV .Bolus ONE Stop: 06/20/17 17:04 Last Admin: 06/20/17 17:19 Dose: Not Given Piperacillin Sod/Tazobactam (Sod 3.375 gm/ Sodium Chloride) 50 mls @ 100 mls/ hr IV Q6H [facility] Last Admin: 06/23/17 04:36 Dose: 100 mls/hr Magnesium Sulfate 2 gm/ Premix 50 mls @ 25 mls/hr IV ONETIME ONE Stop: 06/20/17 20:01 Last Admin: 06/20/17 18:23 Dose: 25 mls/hr Sodium Chloride (Normal Saline) 1,000 mls @ 999 mls/hr IV .BOLUS ONE Stop: 06/21/17 01:17 Last Admin: 06/21/17 00:20 Dose: 999 mls/hr Sodium Chloride (Normal Saline) 1,000 mls @ 150 mls/hr IV ASDIRECTED [facility] Last Admin: 06/21/17 08:00 Dose: 150 mls/hr Magnesium Sulfate 2 gm/ Premix 50 mls @ 50 mls/hr IV ONETIME ONE Stop: 06/21/17 08:44 Last Admin: 06/21/17 07:58 Dose: 50 mls/hr Magnesium Sulfate 4 gm/ Premix 100 mls @ 50 mls/hr IV ONETIME ONE Stop: 06/21/17 11:47 Last Admin: 06/21/17 10:24 Dose: 50 mls/hr Sodium Chloride (Normal Saline) 1,000 mls @ 150 mls/hr IV ASDIRECTED [facility] Stop: 06/21/17 09:51 Ciprofloxacin/Dextrose 400 mg/ (Premix) 200 mls @ 200 mls/hr IV Q12H [facility] Last Admin: 06/23/17 08:22 Dose: 200 mls/hr Metronidazole 250 mg/ Premix 50 mls @ 50 mls/hr IV Q6H [facility] Last Admin: 06/23/17 09:47 Dose: 50 mls/hr Ketamine HCl (Ketalar) Confirm Administered Dose 500 mg .ROUTE .STK-MED ONE Stop: 06/20/17 14:23 Ketorolac Tromethamine (Toradol) 30 mg IVPUSH ONETIME ONE Stop: 06/18/17 23:20 Last Admin: 06/18/17 23:33 Dose: 30 mg Lidocaine HCl (Xylocaine-Mpf 1%) Confirm Administered Dose 5 ml .ROUTE .STK-MED ONE Stop: 06/20/17 10:16 Metoclopramide HCl (Reglan) 5 mg IV Q6H PRN PRN Reason: Nausea Midazolam HCl (Versed 1 Mg/Ml) Confirm Administered Dose 4 mg .ROUTE .STK-MED ONE Stop: 06/20/17 10:17 Morphine Sulfate (Morphine) 2 mg IVPUSH Q3H PRN PRN Reason: Pain Last Admin: 06/19/17 16:19 Dose: 2 mg Neostigmine Methylsulfate (Neostigmine) Confirm Administered Dose 5 mg .ROUTE .STK-MED ONE Stop: 06/20/17 10:16 Non-Formulary Medication (Barbara Ah Absorbable Hemostat) Confirm Administered Dose 1 each .ROUTE .STK-MED ONE Stop: 06/20/17 15:05 Octyl Cyanoacrylate (Dermabond Advance) Confirm Administered Dose 1 applic .ROUTE .STK-MED ONE Stop: 06/20/17 12:09 Omeprazole (Omeprazole) 20 mg PO ACBREAKFAST [facility] Last Admin: 06/21/17 06:30 Dose: 20 mg Ondansetron HCl (Zofran) 8 mg IVPUSH ONETIME ONE Stop: 06/18/17 23:20 Last Admin: 06/18/17 23:32 Dose: 8 mg Ondansetron HCl (Zofran) 4 mg IVPUSH Q3H PRN PRN Reason: Nausea/Vomiting Ondansetron HCl (Zofran) Confirm Administered Dose 4 mg .ROUTE .STK-MED ONE Stop: 06/20/17 10:16 Oxycodone/Acetaminophen (Percocet 325-5 Mg) 2 tab PO Q4H PRN PRN Reason: Pain (moderate 4-6) Oxycodone/Acetaminophen (Percocet 325-10 Mg) 1 tab PO Q4H PRN PRN Reason: Abdominal Pain Phenylephrine HCl (Phenylephrine In Ns 100 Mcg/Ml) Confirm Administered Dose 1 mg .ROUTE .STK-MED ONE Stop: 06/20/17 15:40 Propofol (Diprivan 20 Ml) Confirm Administered Dose 200 mg .ROUTE .STK-MED ONE Stop: 06/20/17 10:14 Rocuronium [place] (Zemuron) Confirm Administered Dose 100 mg .ROUTE .STK-MED ONE Stop: 06/20/17 10:16 Senna/Docusate Sodium (Senokot-S) 1 each PO BEDTIME [facility] Senna/Docusate Sodium (Senokot-S) 2 each PO DAILY [facility] Last Admin: 06/23/17 11:19 Dose: Not Given - Exam General: Reports: Alert, Oriented HEENT: Reports: Pupils Equal, Pupils Reactive Lungs: Reports: Normal Respiratory Effort Cardiovascular: Reports: Regular Rhythm GI/Abdominal Exam: Normal Bowel Sounds, Soft, Non-Tender, No Distention, No Mass *Q Meaningful Use (DIS) - VTE *Q VTE Criteria *Q: - Stroke *Q Stroke Criteria *Q: - AMI *Q AMI Criteria *Q:
[2017-06-23] MEDS ORDERED: metroNIDAZOLE 250 MG Tab PO SCH (15:00)
[2017-06-23] MEDS ORDERED: Ciprofloxacin 500 MG Tab PO SCH (21:00)
== END 2017-06-23 18:00 | disposition home or self-care (01) | DRG 415 ==
LOC: MW.ED 23:01 → MW.MS 06-19 01:49 → MW.ICU 06-20 16:46 → MW.MS 06-21 12:22
PROVIDERS: ADMIT Internal Medicine; ATTEND Internal Medicine
PROC: 0FT40ZZ Resection of Gallbladder, Open Approach (ICD-10-PCS; principal; 2017-06-20)
PROC: 0FJ44ZZ Inspection of Gallbladder, Percutaneous Endoscopic Approach (ICD-10-PCS; 2017-06-20)
DX: K80.00 Calculus of gallbladder with acute cholecystitis without obstruction (principal); E87.1 Hypo-osmolality and hyponatremia; N17.9 Acute kidney failure, unspecified; K81.0 Acute cholecystitis; I95.9 Hypotension, unspecified; N28.9 Disorder of kidney and ureter, unspecified; I10 Essential (primary) hypertension; F41.9 Anxiety disorder, unspecified; F17.200 Nicotine dependence, unspecified, uncomplicated; E87.6 Hypokalemia; R74.0 Nonspecific elevation of levels of transaminase and lactic acid dehydrogenase [LDH]; D72.829 Elevated white blood cell count, unspecified; A59.9 Trichomoniasis, unspecified; Z79.899 Other long term (current) drug therapy; Z85.820 Personal history of malignant melanoma of skin; Z85.43 Personal history of malignant neoplasm of ovary
CPT/HCPCS: 00790; 36415; 74181; 74181-26; 76705; 76705-26; 80048; 80053; 81001; 82150; 83605; 83690; 83735; 84100; 85025; 85027; 87040; 87081; 87804; 87880; 88304; 96361; 96374; 96375; 99283; 99285-25; A9270-GY; J0744; J1170; J1200; J1650; J1885; J2250; J2270; J2405; J2543; J2704; J3010; J3475; J7040; J7050; J7120